=== PATIENT | male | born 1945 | race Caucasian/White ===

== ENCOUNTER → 2016-07-27 | Outpatient (CLI) | payer OTHER ==
[~2016-07-27] MED LIST: APIX1TAB3 PO; ASPI81TA28 PO; BACL10TA PO; BUPR-79 PO; CHOL100010 PO; CLR10 PO; FOLI1TAB7 PO; FURO-85 PO; LORA-741 PO; LOSA100T65 PO; MONT1TAB3 PO; MULT-506 PO; OXYC1TAB3 PO; PANT40TA PO; RANI300C PO; SIMV-151 PO; TRAM-10 PO; VNTHFA/IN INH; [UNRECOGNIZED DRUG - CODE] PO
--- NOTE | 2016-07-27 12:55 | DIAGNOSTIC IMAGING REPORT ---
PET/CT SKULL-THIGH there is no corresponding mass on the CT scan. CLINICAL HISTORY: LUNG CANCER COMPARISON STUDY: 02/24/2016 FINDINGS: The patient was injected with 14.6 mCi of F 18 labeled FDG. Following the standard induction phase, PET/CT imaging was performed from the skull base the upper thigh region. Within the neck, there is mild asymmetric increased activity in the region of the left tonsillar pillar. This this has an SUV maximum of 3.1. There is no corresponding mass on the CT scan. There is mildly increased activity within nonpathologically enlarged right jugular digastric lymph nodes. There is a persistent focus of increased FDG activity fusing to a small right lobe thyroid nodule. This is an SUV maximum of 4. Within the chest, there is no FDG avid mediastinal, hilar, or axillary adenopathy. There are no FDG avid parenchymal masses. There are postsurgical changes present within the left upper lobe. Within the abdomen and pelvis, there is physiologic urinary tract and bowel activity. There is no pathologic hepatic activity. There is no pathologic adrenal gland activity. There is no pathologic rj activity within the abdomen or pelvis. There is no pathologic skeletal activity. IMPRESSION: 1. Interval resection of the left lung nodules 2. No evidence of intrathoracic tumor recurrence. 3. Persistent FDG avid 1 cm right lobe thyroid nodule 4. Mild nonspecific increased activity in the region of the left tonsillar pillar with SUV maximum of 3.1. There is no corresponding mass in the CT scan. Electronically signed by: Rich Jackson M.D. 07/27/2016 12:54 PM Dictated Date/Time: 07/27/2016 12:39 PM
== END | disposition home or self-care (01) ==
LOC: C.PET 08:33
PROVIDERS: ATTEND Internal Medicine Hematology & Oncology
DX: C34.11 Malignant neoplasm of upper lobe, right bronchus or lung (principal); E04.1 Nontoxic single thyroid nodule

== ENCOUNTER → 2016-11-11 | Outpatient (CLI) | payer OTHER ==
[~2016-11-11] MED LIST changes: +ASPI325T45 PO; -ASPI81TA28 PO; +CHOL100010; -CHOL100010 PO; +CHOL400C10 PO; -OXYC1TAB3 PO; +RIVA1TAB4 PO; -TRAM-10 PO
[2016-11-11 13:08] VITALS: BP 122/77; PULSE 80; TEMP 36.4; O2SAT 97
--- NOTE | 2016-11-11 15:28 | Radiation Oncology Follow-Up ---
Radiation Oncology Follow-Up Date of Visit November 11, 2016. (Monet Montesinos PA-C) Reason For Visit One-month follow-up (Monet Montesinos PA-C) Radiation Completion Date 10/14/16 (Monet Montesinos PA-C) Diagnosis (1) Lung cancer Onset Date: 03/17/2016 Histology Subtype: adenocarcinoma Stage: IV Permanent Comment: Admission for bilateral pulmonary emboli Finding of a left upper lobe lesion Status post navigational bronchoscopy and left thoracoscopy with wedge resection of the lingula and biopsy of chest wall mass 03/17/2016 Adenocarcinoma of the lung Stage pTX pN0 M1a Status post 4 cycles of Alimta and carboplatin Maintenance Alimta every 3 weeks Last Edited By: oMnet Montesinos on Aug 25, 2016 11:07 (Monet Montesinos PA-C) History of Present Illness Mr. Paz is a 71-year-old gentleman who initially presented with shortness of breath and was found to have extensive pulmonary emboli in January 2016. The patient had a CT angiogram completed on 01/17/2016 which revealed: "IMPRESSION: 1. Extensive bilateral pulmonary emboli with findings suggestive of right heart strain. Subpleural right lower lobe opacities could reflect pulmonary infarcts. 2. 2 cm lobulated lingular nodule. This is nonspecific but a neoplasm is the diagnosis of exclusion. In addition, there are several indeterminate left pleural nodules which are new since prior CT. Pulmonary consultation is recommended. Short-term follow-up chest CT or PET/CT could be obtained to evaluate these indeterminate findings." The patient subsequently had a PET/CT scan on 02/24/2016: "IMPRESSION: 1. Moderate FDG uptake associated with the 2 cm lobular nodule within the lingula. Therefore, this is highly suspicious for a primary bronchogenic malignancy. 2. There is a 1 cm FDG avid nodule within the right thyroid lobe. Ultrasound guided fine-needle aspiration is recommended to evaluate for a malignancy. 3. There are 2 similar-appearing pleural-based nodules within the left lung which demonstrate abnormal FDG uptake. Therefore, these are concerning for metastatic disease. These could be from bronchogenic or thyroid malignancy. 4. Peripheral opacities demonstrate a FDG uptake within the superior segment of the right lower lobe are again noted. These favor pulmonary infarcts. Follow-up chest CT in 3 months is recommended to ensure resolution. 5. Additional subcentimeter nodules within the lungs are too small to characterize." The patient also had a CT neck completed on 02/24/2016: "IMPRESSION: 1. No cervical lymphadenopathy or cervical masses identified 2. Several subpleural nodules within the left upper lobe which are better depicted on PET/CT of February 24, 2016. 3. Several thyroid nodules, better depicted on prior thyroid ultrasound." The patient then had a repeat CT chest on 03/10/2016 which revealed: "IMPRESSION: 1. No evidence of pathologic adenopathy on this noncontrast study 2. Multiple left lung nodules, unchanged from the preceding examination 3. Stable peripheral airspace opacities within the superior segment of the right lower lobe. " The patient was then taken to the operating room on 03/17/2016 for a navigational bronchoscopy, wedge resection of the lingular lesion and biopsy of a chest wall mass by Dr. Ashby. Pathology revealed poorly differentiated adenocarcinoma involving the left lingula that measured 1.5 cm in the greatest dimension. The parenchymal resection margin was positive. There is no evidence of lymphovascular space invasion. Additionally, Dr. Ashby did biopsy chest wall mass which was consistent with metastatic carcinoma otherwise there was no evidence of disease. The patient was then subsequently seen in consultation by Dr. Rohan Renee for medical oncology. The patient was treated with 4 cycles of carboplatin and Alimta chemotherapy underneath the supervision. The patient did have a restaging PET scan on 07/27/2016 which revealed: "IMPRESSION: 1. Interval resection of the left lung nodules 2. No evidence of intrathoracic tumor recurrence. 3. Persistent FDG avid 1 cm right lobe thyroid nodule 4. Mild nonspecific increased activity in the region of the left tonsillar pillar with SUV maximum of 3.1. There is no corresponding mass in the CT scan." We are now seeing the patient to discuss the role of consolidative radiation therapy. He completed combined radiation and chemotherapy 10/14/2016. He received 5500 cGy. (Monet Montesinos PA-C) Interim History He is been doing well over the past month. He denied any difficulty with swallowing. He did not develop any areas of skin irritation on his anterior posterior thorax. He continues follow-up with Dr. Renee and has been receiving chemotherapy. Treatment is given 3 weeks on 1 week off. He stated there is plans for total 6 cycles. He is tolerating this well. He does notice fatigue approximate 2 days following treatment. He is not had any problems with nausea, vomiting, or diarrhea. He has had problems with skin irritation of the left lower extremity. While on treatment he had developed an area of superficial phlebitis and then area cellulitis. These areas resolved and improved after antibiotic therapy. He again had an area of redness more circumferential around the lower portion of the leg. His PCP gave him an antibiotic and this is improving. He is now been referred to a vascular surgeon. He is scheduled to have an ultrasound next week and to see the vascular surgeon also next week. (Monet Montesinos PA-C) Allergies Coded Allergies: Adhesives (Unverified Adverse Reaction, Unknown, Tegaderm = blistering, ) Home Medications Scheduled Apixaban (Eliquis), 5 MG PO BID Bupropion (Wellbutrin Sr), 150 MG PO HS Folic Acid (Folvite), 1 MG PO DAILY Furosemide (Lasix), 1 TAB PO DAILY Loratadine (Claritin), 10 MG PO QAM Losartan Potassium (Cozaar), 100 MG PO QAM Magnesium Aspartate-Potassium (Aspartate Mg & K), 1 CAP PO DAILY Montelukast Sodium (Singulair), 10 MG PO QPM Pantoprazole (Protonix), 40 MG PO QAM Ranitidine Hcl (Ranitidine Hcl), 1 CAP PO QPM Simvastatin (Simvastatin), 20 MG PO QPM Scheduled PRN Albuterol Hfa (Ventolin Hfa), 1 PUFF INH QID PRN for Shortness of Breath Lorazepam (Ativan), 0.5 MG PO TID PRN for Anxiety/Agitation Review of Systems Gastrointestinal: Symptoms: WNL Oral: Symptoms: No Problems Respiratory: Symptoms: SOB With Exertion, Productive Cough Sputum Character: white grayish Urinary: Symptoms: WNL Skin: Symptoms: No Problems (Monet Montesinos PA-C) Physical Exam Vital Signs Date Time Temp Pulse Resp B/P Pulse Ox O2 Delivery O2 Flow Rate FiO2 11/11/16 13:08 36.4 80 20 122/77 97 Pain: Pain Onset: intermet Pain Duration: one month Side: Left Patient Pain Scale: 0 - 10 Initial Pain Intensity: 7.0 Pain Description: Sharp Fatigue: None General Appearance: no apparent distress Eyes: normal inspection, EOMI ENT: normal ENT inspection, hearing grossly normal Respiratory/Chest: lungs clear, no respiratory distress, no accessory muscle use Cardiovascular: regular rate, rhythm, no gallop, no murmur Abdomen: non tender Extremities: + pertinent finding (stasis dermatitis of the left lower extremity resolving erythema) Neurologic/Psychiatric: no motor/sensory deficits, alert, normal mood/affect Skin: warm/dry Lymphatic: no adenopathy (Monet Montesinos PA-C) Laboratory Studies Test 09/23/16 12:46 09/28/16 11:33 10/05/16 14:15 10/14/16 12:41 Platelet Estimate DECREASED Est Creatinine Clear Calc Drug Dose 58.1 ml/min 72.5 ml/min Chemistry Specimen Hemolysis Immature Granulocyte % (Auto) 0.2 % White Blood Count 4.34 K/uL (4.8-10.8) 1.37 K/uL (4.8-10.8) Red Blood Count 3.39 M/uL (4.7-6.1) 3.28 M/uL (4.7-6.1) Hemoglobin 11.2 g/dL (14.0-18.0) 10.5 g/dL (14.0-18.0) Hematocrit 33.3 % (42-52) 31.3 % (42-52) Mean Corpuscular Volume 98.2 fL (80-100) 95.4 fL (80-100) Mean Corpuscular Hemoglobin 33.0 pg (25-34) 32.0 pg (25-34) Mean Corpuscular Hemoglobin Concent 33.6 g/dl (32-36) 33.5 g/dl (32-36) Platelet Count 149 K/uL (130-400) 69 K/uL (130-400) Mean Platelet Volume 10.4 fL (7.4-10.4) 9.8 fL (7.4-10.4) Neutrophils (%) (Auto) 60.8 % Lymphocytes (%) (Auto) 26.5 % Monocytes (%) (Auto) 10.6 % Eosinophils (%) (Auto) 1.4 % Basophils (%) (Auto) 0.5 % Neutrophils # (Auto) 2.64 K/uL (1.4-6.5) Lymphocytes # (Auto) 1.15 K/uL (1.2-3.4) Monocytes # (Auto) 0.46 K/uL (0.11-0.59) Eosinophils # (Auto) 0.06 K/uL (0-0.5) Basophils # (Auto) 0.02 K/uL (0-0.2) Immature Granulocyte # (Auto) 0.01 K/uL (0.00-0.02) Lactate Dehydrogenase 227 U/L (87-241) RDW Standard Deviation 61.0 fL (36.4-46.3) RDW Coefficient of Variation 17.6 % (11.5-14.5) Neutrophils % (Manual) 30.4 % Lymphocytes % (Manual) 47.0 % Monocytes % (Manual) 16.5 % Eosinophils % (Manual) 6.1 % Neutrophils # (Manual) 0.42 K/uL (1.4-6.5) Total Absolute Neutrophils 0.42 K/uL (1.4-6.5) Lymphocytes # (Manual) 0.64 K/uL (1.2-3.4) Total Absolute Lymphocytes 0.64 K/uL (1.2-3.4) Monocytes # (Manual) 0.23 K/uL (0.11-0.59) Eosinophils # (Manual) 0.08 K/uL (0-0.5) Red Blood Cell Morphology Unremarkable Sodium Level 141 mmol/L (136-145) Potassium Level 4.1 mmol/L (3.5-5.1) Chloride Level 105 mmol/L (98-107) Carbon Dioxide Level 32 mmol/L (21-32) Anion Gap 4.0 mmol/L (3-11) Blood Urea Nitrogen 18 mg/dl (7-18) Creatinine 1.20 mg/dl (0.60-1.40) Estimated GFR () 71.1 Estimated GFR (Non- 61.3 BUN/Creatinine Ratio 14.7 (10-20) Random Glucose 107 mg/dl (70-99) Calcium Level 9.4 mg/dl (8.5-10.1) Total Bilirubin 0.5 mg/dl (0.2-1) Aspartate Amino Transferase (AST) 39 U/L (15-37) Alanine Aminotransferase (ALT) 58 U/L (12-78) Alkaline Phosphatase 113 U/L (45-117) Total Protein 7.7 gm/dl (6.4-8.2) Albumin 3.5 gm/dl (3.4-5.0) Globulin 4.2 gm/dl (2.5-4.0) Albumin/Globulin Ratio 0.8 (0.9-2) Test 10/26/16 14:08 White Blood Count 4.49 K/uL (4.8-10.8) Red Blood Count 3.33 M/uL (4.7-6.1) Hemoglobin 10.7 g/dL (14.0-18.0) Hematocrit 32.9 % (42-52) Mean Corpuscular Volume 98.8 fL (80-100) Mean Corpuscular Hemoglobin 32.1 pg (25-34) Mean Corpuscular Hemoglobin Concent 32.5 g/dl (32-36) Platelet Count 150 K/uL (130-400) Mean Platelet Volume 10.3 fL (7.4-10.4) Neutrophils (%) (Auto) 61.5 % Lymphocytes (%) (Auto) 23.2 % Monocytes (%) (Auto) 10.7 % Eosinophils (%) (Auto) 4.0 % Basophils (%) (Auto) 0.4 % Neutrophils # (Auto) 2.76 K/uL (1.4-6.5) Lymphocytes # (Auto) 1.04 K/uL (1.2-3.4) Monocytes # (Auto) 0.48 K/uL (0.11-0.59) Eosinophils # (Auto) 0.18 K/uL (0-0.5) Basophils # (Auto) 0.02 K/uL (0-0.2) RDW Standard Deviation 69.7 fL (36.4-46.3) RDW Coefficient of Variation 19.3 % (11.5-14.5) Immature Granulocyte % (Auto) 0.2 % Immature Granulocyte # (Auto) 0.01 K/uL (0.00-0.02) Sodium Level 141 mmol/L (136-145) Potassium Level 4.0 mmol/L (3.5-5.1) Chloride Level 106 mmol/L (98-107) Carbon Dioxide Level 29 mmol/L (21-32) Anion Gap 6.0 mmol/L (3-11) Blood Urea Nitrogen 18 mg/dl (7-18) Creatinine 1.20 mg/dl (0.60-1.40) Estimated GFR () 71.1 Estimated GFR (Non- 61.3 BUN/Creatinine Ratio 15.0 (10-20) Random Glucose 104 mg/dl (70-99) Calcium Level 9.2 mg/dl (8.5-10.1) Total Bilirubin 0.4 mg/dl (0.2-1) Aspartate Amino Transferase (AST) 38 U/L (15-37) Alanine Aminotransferase (ALT) 55 U/L (12-78) Alkaline Phosphatase 124 U/L (45-117) Lactate Dehydrogenase 280 U/L (87-241) Total Protein 7.5 gm/dl (6.4-8.2) Albumin 3.6 gm/dl (3.4-5.0) Globulin 3.9 gm/dl (2.5-4.0) Albumin/Globulin Ratio 0.9 (0.9-2) (Monet Montesinos PA-C) Additional Studies Patient: ASHLEY PAZ JR Address1: [address] [place] [address] Rec: [id number] [id number] Zip: [place] [address] Date: 1945 Sex: M Room/Bed: Ref Phy: Patrick Ratliff M.D. SC: WU Att Phy: Celsa Rhoades .DIANNE Report #: [id number] Alyce Phy: Patrick Ratliff M.D. Test: CX Admit Phy: Video Effects Editor: EMANI Interpreting Phy: Rich Jackson M.D. Diagnosis: NON SMALL CELL LUNG CANCER Ordering Phy: Celsa Rhoades Service Date: 11/05/16 Admit Date: 11/05/16 MNE: [id number] CONF: DICTATED BY: Rich Jackson M.D.]] CC: Patrick Ratliff M.D. Whittaker, Lynn ., CRNP Endcc: [~ rep ct add3]] CT OF THE CHEST WITH IV CONTRAST CLINICAL HISTORY: Non-small cell lung carcinoma COMPARISON STUDY: 03/19/2016 TECHNIQUE: Following the IV administration of 94 mL of Optiray-320, CT of the thorax was performed from the thoracic inlet to the lung bases. Images are reviewed in the axial, sagittal, and coronal planes. IV contrast was administered without complication. CT DOSE: 1921.83 mGy.cm FINDINGS: Thyroid: There is a 1 cm right lobe thyroid nodule Thoracic aorta: The thoracic aorta is normal in course and caliber, noting standard 3-vessel arch anatomy. No aneurysm or dissection is seen. Pulmonary vasculature: The pulmonary trunk is normal in caliber. There are no central filling defects identified to suggest pulmonary embolus. Note that this examination was not protocoled for the evaluation of pulmonary emboli. HEART: The heart is normal in size and configuration, without pericardial effusion. Lungs and pleural spaces: No pleural effusions are visualized. Postsurgical changes are present within the lingula. There are areas of presumed linear scarring/atelectasis within the lingula. There is underlying emphysema. There is no focal pulmonary consolidation. There are stable right lower lobe opacities, also likely representing atelectasis/scar. There is a stable 5 mm left lower lobe pulmonary nodule. Mediastinum: There is a precarinal lymph node the upper limits of normal in size. There is no pathologic adenopathy by size criteria Sakina: There is no pathologic hilar adenopathy Axilla: Clear. Upper abdomen: Partially visualized upper abdominal viscera is within normal limits. Skeletal structures: There are no lytic or blastic osseous lesions. IMPRESSION: 1. Postsurgical changes present within the left upper lobe. 2. Stable areas of presumed atelectasis/scarring within left upper lobe 3. Stable airspace opacities within the superior segment of the right lower lobe peripherally, likely representing scar/atelectasis 4. Stable 5 mm left lower lobe pulmonary nodule 6. No evidence of pathologic adenopathy Electronically signed by: Rich Jackson M.D. 11/05/2016 12:37 PM Dictated Date/Time: 11/05/2016 12:29 PM Patient: ASHLEY PAZ JR Address1: [address] [facility] Rec: [id number] Address2: Acct ID: [id number] [facility] Zip: [place] [address] Date: 1945 Sex: M Room/Bed: Ref Phy: Patrick Ratliff M.D. SC: WU Att Phy: Celsa Rhoades CRNP Report #: [id number] Alyce Phy: Patrick Ratliff M.D. Test: APW Admit Phy: Video Effects Editor: EMANI Interpreting Phy: Casper Abbott M.D. Diagnosis: NON SMALL CELL LUNG CANCER Ordering Phy: Celsa Rhoades Service Date: 11/05/16 Admit Date: 11/05/16 MNE: [id number] CONF: DICTATED BY: Casper Abbott M.D.]] CC: Patrick Ratliff M.D. Whittaker, Lynn ., CRNP Endcc: [~ rep ct add3]] CT SCAN OF THE ABDOMEN AND PELVIS WITH IV CONTRAST CLINICAL HISTORY: Non-small cell lung cancer. COMPARISON STUDY: PET/CT dated 07/27/2016. Chest CT dated 10/11/2013. TECHNIQUE: Following the IV administration of 94 cc of Optiray 320, CT scan of the abdomen and pelvis is performed from the lung bases to the proximal femora. Images are reviewed in the axial, sagittal, and coronal planes. IV contrast was administered without complication. Automated dose control exposure was utilized. FINDINGS: Lung bases: The heart is top normal in size and without pericardial effusion. The coronary arteries are densely calcified. Postoperative change and scarring is seen in the lingula. Emphysema is suspected. No airspace consolidation or pleural effusion is identified. There is a small hiatal hernia. Liver: The contrast-enhanced liver is normal in size, contour, and attenuation. There is no intrahepatic biliary ductal dilatation. The hepatic veins and portal veins are patent. A 1.5 cm low-attenuation lesion is again seen in the left lobe of liver on image #70. Although incompletely characterized, this demonstrates foci of peripheral nodular enhancement and this strongly suggests a benign hemangioma. This is been present dating back to 2013 and is of doubtful significance. Gallbladder: Unremarkable. Spleen: Normal in size and attenuation. Pancreas: Unremarkable. Adrenal glands: Small bilateral adrenal adenomas measuring up to 1.7 cm are unchanged dating back to 2013 . Kidneys: The contrast enhanced kidneys demonstrate mild cortical atrophy and are without hydronephrosis. There is an 8 mm exophytic enhancing nodule arising from the posterior interpolar left kidney seen on image #229. The kidneys enhance symmetrically. Abdominal vasculature: The abdominal aorta is normal in course and caliber noting moderate to advanced atherosclerotic calcification. Bowel: The small bowel and colon are normal in course and caliber. The appendix is well-visualized and normal. Peritoneum: There is no intraperitoneal free air or abdominal ascites. Lymphadenopathy: None. Pelvic viscera: The bladder, prostate, and seminal vesicles are normal as imaged. Skeletal structures: The skeletal structures are osteopenic. Mild lumbosacral spondylosis is observed. No lytic or blastic lesions are seen. There are healed left-sided rib fractures. IMPRESSION: 1. There is no evidence of metastatic disease in the abdomen or pelvis. 2. There is an 8 mm exophytic enhancing nodule arising from the posterior interpolar left kidney. Although pathologically indeterminant this is concerning for a small renal cell carcinoma. 3. Hiatal hernia. 4. Additional findings as above. Electronically signed by: Casper Abbott M.D. 11/05/2016 12:40 PM (Monet Montesinos PA-C) Assessment & Plan Plan: Continue follow-up with Dr. Renee. He is continuing on his cycles of chemotherapy. He has been referred to a vascular surgeon. He'll be seeing next week in regards to the issues that he has been having with his left lower extremity. Today he was seen and examined by Dr. Pacheco. We asked him to return to our office in 6 months. He may call if he has any questions or concerns in the interim. We reviewed the above CT findings of the chest, abdomen, and pelvis. These have been reviewed by Dr. Renee with the patient also. The small lesion of the kidney had been seen also on a previous study, per the patient. Recheck scanning and laboratory studies per Dr. Renee. (Monet Montesinos PA-C) I agree with note created by Monet Montesinos PA-C. I reviewed the patient's chart and information with her. I have examined and evaluated the patient. I reviewed relevant clinical information and answered the patient's and/or family' s questions. (Veeral. Pacheco MD) Total Time In Follow-Up I spent 20 minutes speaking to the patient and performing examination. I spent 15 minutes reviewing information in completing this note. (Monet Montesinos PA-C) I spent 15 minutes examining and counseling the patient. (Veeral. Pacheco MD) Copy To Rohan Renee D.O.; Patrick Ratliff M.D. Problem Qualifiers (1) Lung cancer: Laterality: left Lung location: upper lobe of lung Qualified Codes: C34.12 - Malignant neoplasm of upper lobe, left bronchus or lung
== END | disposition home or self-care (01) ==
LOC: C.ONC 12:59
PROVIDERS: ATTEND Physician Assistant Medical
DX: Z08 Encounter for follow-up examination after completed treatment for malignant neoplasm (principal); Z92.3 Personal history of irradiation; Z85.118 Personal history of other malignant neoplasm of bronchus and lung

== ENCOUNTER → 2016-12-18 | Outpatient (CLI) | payer OTHER ==
[~2016-12-18] MED LIST changes: -BACL10TA PO
--- NOTE | 2016-12-18 08:59 | DIAGNOSTIC IMAGING REPORT ---
LEFT KNEE 1 OR 2 VIEWS ROUTINE CLINICAL HISTORY: LEFT KNEE PAIN COMPARISON: None. DISCUSSION: There are moderate osteoarthritic changes with moderate lateral joint compartment narrowing. There are small dorsal patellar spurs. 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 This has been previously described. IMPRESSION: 1. Moderate osteoarthritic change 2. No acute fractures 3. Popliteal artery aneurysm Electronically signed by: Rich Jackson M.D. 12/18/2016 8:58 AM Dictated Date/Time: 12/18/2016 8:57 AM
[2016-12-18 10:46] LABS: HEMATOCRIT 29.6 % (42-52); MEAN CELL VOLUME 102.1 fL (80-100); MEAN CORPUSCULAR HEMOGLOBIN 31.4 pg (25-34); MEAN CORPUSCULAR HGB CONC 30.7 g/dl (32-36); MEAN PLATELET VOLUME 11.1 fL (7.4-10.4); PLATELET COUNT 113 K/uL (130-400); WHITE BLOOD COUNT 3.29 K/uL (4.8-10.8)
[2016-12-18 10:58] LABS: ALT/SGPT 96 U/L (12-78); BLOOD UREA NITROGEN 23 mg/dl (7-18); BUN/CREATININE RATIO 17.6 (10-20); CARBON DIOXIDE 24 mmol/L (21-32); CHLORIDE 106 mmol/L (98-107); CHOLESTEROL 133 mg/dl (0-200); GLUCOSE 99 mg/dl (70-99); POTASSIUM 3.6 mmol/L (3.5-5.1); SODIUM 140 mmol/L (136-145)
[2016-12-18 11:09] LABS: ALB/GLOB RATIO 0.7 (0.9-2); ALKALINE PHOSPHATASE 113 U/L (45-117); AST/SGOT 65 U/L (15-37); CHOLESTEROL/HDL RATIO 3.9; HDL CHOLESTEROL 34 mg/dl; LDL CHOLESTEROL CALCULATED 79 mg/dl; TRIGLYCERIDES 102 mg/dl (0-150); VERY LOW DENSITY LIPOPROT CALC 20 mg/dl
[2016-12-18 11:28] LABS: URINE APPEARANCE CLEAR (CLEAR); URINE BILIRUBIN NEG (NEG); URINE COLOR YELLOW; URINE NITRITE NEG (NEG); URINE PH 5.5 (4.5-7.5); URINE SPECIFIC GRAVITY 1.019 (1.000-1.030); UROBILINOGEN NEG (NEG)
[2016-12-18 11:30] LABS: MANUAL MICROSCOPIC REQUIRED? NO; REVIEW REQ? NO
[2016-12-18 12:12] LABS: CALCIUM 8.8 mg/dl (8.5-10.1)
== END | disposition home or self-care (01) ==
LOC: C.RADBC 08:29
DX: I27.82 Chronic pulmonary embolism (principal); E78.00 Pure hypercholesterolemia, unspecified; D44.9 Neoplasm of uncertain behavior of unspecified endocrine gland; M15.0 Primary generalized (osteo)arthritis; R42 Dizziness and giddiness; C34.10 Malignant neoplasm of upper lobe, unspecified bronchus or lung; M25.562 Pain in left knee

== ENCOUNTER → 2017-01-26 | Outpatient (CLI) | payer OTHER ==
[~2017-01-26] MED LIST changes: -ASPI325T45 PO; -CHOL100010; -CHOL400C10 PO; -MULT-506 PO; -RIVA1TAB4 PO
--- NOTE | 2017-01-26 15:15 | DIAGNOSTIC IMAGING REPORT ---
(CHEST) THORAX WITH HISTORY: 71 years-old Male LUNG CA follow-up study. COMPARISON: Chest CT 11/05/2016, 03/19/2016, 10/11/2013. TECHNIQUE: Multiple axial CT images of the chest were obtained following the intravenous administration of 92 mL Optiray 320. A dose lowering technique was used consistent with the principals of PRISCILLA. FINDINGS: There is a focal 4 mm calcification of the mid right thyroid lobe. No pathologic adenopathy pneumothorax is identified. Left pectoral Ruiohz-l-Ghsu catheter is seen with distal tip terminating near the superior cavoatrial junction. The heart is normal in size. Coronary arterial calcifications are noted. There is no evidence of aortic dissection or aneurysm. There is moderate atherosclerotic plaquing of the aorta. Pulmonary arterial tree appears unremarkable. There is no pneumothorax or pleural effusion. Mild biapical centrilobular and to lesser extent paraseptal emphysematous changes are present. There is an unchanged 5 mm noncalcified pulmonary nodule the left lower lobe which is stable dating back to at least 10/11/2013 compatible with benign etiology. 4 mm noncalcified pulmonary nodule within the lateral segment right middle lobe is also unchanged from 10/11/2013 compatible with benign etiology. There is mild bibasilar bronchiectasis with areas of pleural parenchymal scarring redemonstrated within the lingula and superior segment of the right lower lobe, stable from comparison study dated 11/05/2016. There is new irregular consolidative opacity within the left upper lobe with central air bronchograms measuring up to 2.1 x 4.8 cm which appears to be confluence abutting the pleural surface suggesting progressive pleural parenchymal scarring. Attention to this area on follow-up is recommended. Mild nodular and tree-in-bud opacities within the basal left lower lobe suggest areas of pneumonitis and bronchiolitis as seen on axial images 200-230. The imaged upper abdominal structures are within normal limits. There are no suspicious lytic or blastic bony lesions identified. Multilevel endplate spurring is seen throughout the spine. Remote fracture of the anterolateral left third rib is again seen. Subacute nondisplaced fractures of the lateral right sixth and seventh ribs are new from comparison study dated 11/05/2016. IMPRESSION: 1. Postsurgical changes of the left upper lobe and lingula are again seen with multifocal areas of pleural parenchymal scarring in the left upper lobe and superior segment right lower lobe. 2. New irregular consolidative type opacity with central air bronchograms abutting the pleural surface within the left upper lobe suggests progressive parenchymal scarring. Attention on follow-up is recommended. 3. Mild pneumonitis and bronchiolitis of the basal left lower lobe. 4. Unchanged noncalcified pulmonary nodules measuring up to 4 mm of the right middle lobe and left lower lobe are stable dating back to at least 2013 compatible with benign etiology. 5. Subacute nondisplaced fractures of the lateral right sixth and seventh ribs are new from comparison study dated 11/05/2016. The above report was generated using voice recognition software. It may contain grammatical, syntax or spelling errors. Electronically signed by: Mane Ramos M.D. 01/26/2017 3:14 PM Dictated Date/Time: 01/26/2017 3:02 PM
--- NOTE | 2017-01-26 16:08 | DIAGNOSTIC IMAGING REPORT ---
CT OF THE ABDOMEN AND PELVIS WITH CONTRAST CLINICAL HISTORY: Non-small cell lung cancer. COMPARISON STUDY: CT of the abdomen and pelvis November 05, 2016 pain and PET/CT July 27, 2016. TECHNIQUE: Following IV administration of 92 mL of Optiray-320, axial images of the abdomen and pelvis were obtained from the lung bases to the proximal femurs. Images were reviewed in the axial, sagittal, and coronal planes. IV contrast was administered without complication. A dose lowering technique was utilized adhering to the principles of ALARA. Oral contrast was administered. CT DOSE: 2637.98 mGy.cm FINDINGS: The chest will be reported separately. A 1 cm hypodense lateral segment hepatic lesion reflects a cyst. This is unchanged. A 2.2 cm left adrenal nodule is unchanged and CT of October 11, 2013. Therefore, this is benign. The spleen, right adrenal gland, right kidney and pancreas are unremarkable. An 8 mm suspected exophytic lesion arising from the posterior aspect of the midpole of the left kidney is unchanged and CT of November 05, 2016. This remains indeterminate. No enlarged abdominal or pelvic lymph nodes are present. There is no evidence for a bowel obstruction. Caliber and wall thickness of small and large bowel are normal. There is moderate atherosclerotic plaque of the abdominal aorta. No suspicious osseous lesions are identified within visualized skeletal structures. IMPRESSION: 1. No evidence of metastatic disease within the abdomen or pelvis. 2. No change in the 8 mm left renal lesion since CT of November 05, 2016. This remains indeterminate and could reflect a small renal cell carcinoma or hyperdense cyst. This can be assessed on subsequent exams. Electronically signed by: Dorian Paris M.D. 01/26/2017 4:07 PM Dictated Date/Time: 01/26/2017 3:03 PM
== END | disposition home or self-care (01) ==
LOC: C.CTS 12:33
PROVIDERS: ATTEND Internal Medicine Hematology & Oncology
DX: C34.11 Malignant neoplasm of upper lobe, right bronchus or lung (principal); N28.9 Disorder of kidney and ureter, unspecified; R91.8 Other nonspecific abnormal finding of lung field; J18.9 Pneumonia, unspecified organism; J21.9 Acute bronchiolitis, unspecified; R05 Cough; D44.0 Neoplasm of uncertain behavior of thyroid gland; I10 Essential (primary) hypertension; I27.82 Chronic pulmonary embolism; R42 Dizziness and giddiness; R53.83 Other fatigue

== ENCOUNTER → 2017-01-26 | Outpatient (CLI) | payer OTHER ==
--- NOTE | 2017-01-26 11:45 | DIAGNOSTIC IMAGING REPORT ---
CHEST 2 VIEWS ROUTINE CLINICAL HISTORY: Shortness of breath. Non-small cell lung cancer. COMPARISON STUDY: Chest CT November 05, 2016. FINDINGS: A left Bwcris-d-Yque is in place. There is no pneumothorax or pleural effusion. There is no evidence of pulmonary edema. Mild cardiomegaly is unchanged. Linear left lung opacities suggest atelectasis or scarring. There is mild right lower lung reticulonodular interstitial thickening. IMPRESSION: 1. No consolidation. 2. Left lung linear opacities which suggest scarring or atelectasis. Stable postoperative findings within the left hemithorax. 3. No change in appearance of the chest. Electronically signed by: Dorian Paris M.D. 01/26/2017 11:44 AM Dictated Date/Time: 01/26/2017 11:41 AM
[2017-01-26 13:32] LABS: MEAN CELL VOLUME 101.7 fL (80-100); MEAN CORPUSCULAR HEMOGLOBIN 31.9 pg (25-34); MEAN CORPUSCULAR HGB CONC 31.4 g/dl (32-36); MEAN PLATELET VOLUME 10.8 fL (7.4-10.4); PLATELET COUNT 183 K/uL (130-400); RED BLOOD COUNT 3.54 M/uL (4.7-6.1); WHITE BLOOD COUNT 6.89 K/uL (4.8-10.8)
[2017-01-26 13:44] LABS: PROTHROMBIN TIME (PATIENT) 10.4 SECONDS (9.0-12.0)
[2017-01-26 13:45] LABS: ALT/SGPT 38 U/L (12-78); BLOOD UREA NITROGEN 24 mg/dl (7-18); BUN/CREATININE RATIO 18.2 (10-20); CALCIUM 9.2 mg/dl (8.5-10.1); CARBON DIOXIDE 25 mmol/L (21-32); CHLORIDE 106 mmol/L (98-107); GLUCOSE 99 mg/dl (70-99); SODIUM 139 mmol/L (136-145)
[2017-01-26 13:51] LABS: ALB/GLOB RATIO 0.8 (0.9-2); ALKALINE PHOSPHATASE 125 U/L (45-117); AST/SGOT 37 U/L (15-37)
[2017-01-26 14:25] LABS: URINE APPEARANCE CLEAR (CLEAR); URINE BILIRUBIN NEG (NEG); URINE COLOR YELLOW; URINE NITRITE NEG (NEG); URINE SPECIFIC GRAVITY 1.022 (1.000-1.030); UROBILINOGEN NEG (NEG)
[2017-01-26 14:26] LABS: MANUAL MICROSCOPIC REQUIRED? NO; REVIEW REQ? NO
== END | disposition home or self-care (01) ==
LOC: C.RADBC 10:34
PROVIDERS: ATTEND Physician Assistant
DX: R05 Cough (principal); D44.0 Neoplasm of uncertain behavior of thyroid gland; I10 Essential (primary) hypertension; I27.82 Chronic pulmonary embolism; R42 Dizziness and giddiness; R53.83 Other fatigue

== ENCOUNTER → 2017-03-05 | Outpatient (CLI) | payer OTHER ==
--- NOTE | 2017-03-05 12:21 | DIAGNOSTIC IMAGING REPORT ---
CHEST 2 VIEWS ROUTINE CLINICAL HISTORY: LUNG CANCER WITH CHRONIC COUGH COMPARISON STUDY: 01/26/2017 FINDINGS: The cardiac and mediastinal contours remain stable. There is stable aortic tortuosity/ectasia. Surgical clips project over the left hilar region. There is a left-sided A-Port catheter unchanged in position. There are suture lines present the left apex. There is underlying pulmonary emphysema. There is chronic indistinctness left heart border. There is no acute parenchymal consolidation. There is stable left upper lobe linear scar/atelectasis. There is no failure. There are no pleural effusions.[ IMPRESSION: Postsurgical change. No acute findings. Electronically signed by: Rich Jackson M.D. 03/05/2017 12:19 PM Dictated Date/Time: 03/05/2017 12:18 PM
== END | disposition home or self-care (01) ==
LOC: C.RADBC 10:55
PROVIDERS: ATTEND Internal Medicine Hematology & Oncology
DX: C34.11 Malignant neoplasm of upper lobe, right bronchus or lung (principal)

== ENCOUNTER → 2017-05-18 | Outpatient (CLI) | payer OTHER ==
[~2017-05-18] MED LIST changes: +ASPI325T45 PO; +CHOL100010; +CHOL400C10 PO; +MULT-506 PO; +RIVA1TAB4 PO
[2017-05-18 13:18] VITALS: BP 132/80; PULSE 75; TEMP 36.6; O2SAT 96
--- NOTE | 2017-05-18 16:02 | Radiation Oncology Follow-Up ---
Radiation Oncology Follow-Up Date of Visit May 18, 2017. Reason For Visit 6 month follow-up Radiation Completion Date finished 10-14-2016 Diagnosis (1) Lung cancer Onset Date: 03/17/2016 Histology Subtype: adenocarcinoma Stage: IV Permanent Comment: Admission for bilateral pulmonary emboli Finding of a left upper lobe lesion Status post navigational bronchoscopy and left thoracoscopy with wedge resection of the lingula and biopsy of chest wall mass 03/17/2016 Adenocarcinoma of the lung Stage pTX pN0 M1a Status post 4 cycles of Alimta and carboplatin Maintenance Alimta every 3 weeks Status post completion of combined radiation and chemotherapy 10/14/2016. He received 5500 cGy Completing chemotherapy 06/26/2016 Last Edited By: Monet Montesinos on May 18, 2017 15:51 History of Present Illness Mr. Paz is a 71-year-old gentleman who initially presented with shortness of breath and was found to have extensive pulmonary emboli in January 2016. The patient had a CT angiogram completed on 01/17/2016 which revealed: "IMPRESSION: 1. Extensive bilateral pulmonary emboli with findings suggestive of right heart strain. Subpleural right lower lobe opacities could reflect pulmonary infarcts. 2. 2 cm lobulated lingular nodule. This is nonspecific but a neoplasm is the diagnosis of exclusion. In addition, there are several indeterminate left pleural nodules which are new since prior CT. Pulmonary consultation is recommended. Short-term follow-up chest CT or PET/CT could be obtained to evaluate these indeterminate findings." The patient subsequently had a PET/CT scan on 02/24/2016: "IMPRESSION: 1. Moderate FDG uptake associated with the 2 cm lobular nodule within the lingula. Therefore, this is highly suspicious for a primary bronchogenic malignancy. 2. There is a 1 cm FDG avid nodule within the right thyroid lobe. Ultrasound guided fine-needle aspiration is recommended to evaluate for a malignancy. 3. There are 2 similar-appearing pleural-based nodules within the left lung which demonstrate abnormal FDG uptake. Therefore, these are concerning for metastatic disease. These could be from bronchogenic or thyroid malignancy. 4. Peripheral opacities demonstrate a FDG uptake within the superior segment of the right lower lobe are again noted. These favor pulmonary infarcts. Follow-up chest CT in 3 months is recommended to ensure resolution. 5. Additional subcentimeter nodules within the lungs are too small to characterize." The patient also had a CT neck completed on 02/24/2016: "IMPRESSION: 1. No cervical lymphadenopathy or cervical masses identified 2. Several subpleural nodules within the left upper lobe which are better depicted on PET/CT of February 24, 2016. 3. Several thyroid nodules, better depicted on prior thyroid ultrasound." The patient then had a repeat CT chest on 03/10/2016 which revealed: "IMPRESSION: 1. No evidence of pathologic adenopathy on this noncontrast study 2. Multiple left lung nodules, unchanged from the preceding examination 3. Stable peripheral airspace opacities within the superior segment of the right lower lobe. " The patient was then taken to the operating room on 03/17/2016 for a navigational bronchoscopy, wedge resection of the lingular lesion and biopsy of a chest wall mass by Dr. Ashby. Pathology revealed poorly differentiated adenocarcinoma involving the left lingula that measured 1.5 cm in the greatest dimension. The parenchymal resection margin was positive. There is no evidence of lymphovascular space invasion. Additionally, Dr. Ashby did biopsy chest wall mass which was consistent with metastatic carcinoma otherwise there was no evidence of disease. The patient was then subsequently seen in consultation by Dr. Rohan Renee for medical oncology. The patient was treated with 4 cycles of carboplatin and Alimta chemotherapy underneath the supervision. The patient did have a restaging PET scan on 07/27/2016 which revealed: "IMPRESSION: 1. Interval resection of the left lung nodules 2. No evidence of intrathoracic tumor recurrence. 3. Persistent FDG avid 1 cm right lobe thyroid nodule 4. Mild nonspecific increased activity in the region of the left tonsillar pillar with SUV maximum of 3.1. There is no corresponding mass in the CT scan." We are now seeing the patient to discuss the role of consolidative radiation therapy. He completed combined radiation and chemotherapy 10/14/2016. He received 5500 cGy. Interim History He feels he is stable from a respiratory status over the past 6 months. He has a chronic cough. He did see his PCP and will be having a CAT scan of his sinuses today. He denies any difficulty with swallowing. His appetite is good. He has gained approximately 10 pounds since completion of treatment. His last chemotherapy was 06/26/2016 and that was carboplatin and Pemetrexed. He had a follow-up CAT scan in January. He also had a chest x-ray in March. Allergies Coded Allergies: Adhesives (Unverified Adverse Reaction, Unknown, Tegaderm = blistering, ) Home Medications Scheduled Aspirin (Aspirin), 325 MG PO HS Bupropion (Wellbutrin Sr), 150 MG PO HS Cholecalciferol (Vitamin D 400), 1 TAB PO DAILY Folic Acid (Folvite), 1 MG PO DAILY Loratadine (Claritin), 10 MG PO QAM Losartan Potassium (Cozaar), 100 MG PO QAM Magnesium Aspartate-Potassium (Aspartate Mg & K), 1 CAP PO DAILY Montelukast Sodium (Singulair), 10 MG PO QPM Multivitamin (Multivitamin), 1 TAB PO DAILY Pantoprazole (Protonix), 40 MG PO QAM Ranitidine Hcl (Ranitidine Hcl), 1 CAP PO QPM Rivaroxaban (Xarelto), 1 TAB PO DAILY Simvastatin (Simvastatin), 20 MG PO QPM Scheduled PRN Albuterol Hfa (Ventolin Hfa), 1 PUFF INH QID PRN for Shortness of Breath Lorazepam (Ativan), 0.5 MG PO TID PRN for Anxiety/Agitation Miscellaneous Medications Cholecalciferol (Vitamin D) Review of Systems Gastrointestinal: Symptoms: WNL Oral: Symptoms: No Problems Respiratory: Symptoms: Moist Cough, SOB With Exertion, Productive Cough Sputum Character: "goodson in color " Urinary: Symptoms: Nocturia Comments: nocturia times 1-3 Skin: Symptoms: No Problems Physical Exam Vital Signs Date Time Temp Pulse Resp B/P (MAP) Pulse Ox O2 Delivery O2 Flow Rate FiO2 05/18/17 13:18 36.6 75 20 132/80 96 Fatigue: None General Appearance: no apparent distress Eyes: normal inspection, EOMI ENT: normal ENT inspection, hearing grossly normal Neck: no adenopathy, thyroid normal Respiratory/Chest: no respiratory distress, no accessory muscle use, + wheezing (mild anterior lung javier, clear posterior bilaterally) Cardiovascular: regular rate, rhythm, no gallop, no murmur Abdomen: normal bowel sounds, non tender Extremities: no pedal edema Neurologic/Psychiatric: no motor/sensory deficits, alert, normal mood/affect Skin: warm/dry Pain Management Pain Duration: one month Side: Bilateral Pain Location: Leg Patient Preferred Pain Scale: 0 - 10 Pain Rating (0-10): 0 Pain Description: Sharp Additional Studies Patient: ASHLEY PAZ JR Address1: [address] [facility] Rec: [id number] Address2: Acct ID: [id number] [facility] Zip: [place] [address] Date: 1945 Sex: M Room/Bed: Ref Phy: Patrick Ratliff M.D. SC: C.CTS Att Phy: Rohan Renee D.O. Report #: [id number] Alyce Phy: Patrick Ratliff M.D. Test: APIV Admit Phy: Assembler Seat: DAGO Interpreting Phy: Dorian Paris MD Diagnosis: LUNG CANCER Ordering Phy: Rohan Renee D.O. Service Date: 01/26/17 Admit Date: 01/26/17 MNE: [id number] CONF: DICTATED BY: Dorian Paris MD]] CC: Rohan Renee D.O. Greenberg, Michael R., M.D. Endcc: [~ rep ct add3]] CT OF THE ABDOMEN AND PELVIS WITH CONTRAST CLINICAL HISTORY: Non-small cell lung cancer. COMPARISON STUDY: CT of the abdomen and pelvis November 05, 2016 pain and PET/CT July 27, 2016. TECHNIQUE: Following IV administration of 92 mL of Optiray-320, axial images of the abdomen and pelvis were obtained from the lung bases to the proximal femurs. Images were reviewed in the axial, sagittal, and coronal planes. IV contrast was administered without complication. A dose lowering technique was utilized adhering to the principles of ALARA. Oral contrast was administered. CT DOSE: 2637.98 mGy.cm FINDINGS: The chest will be reported separately. A 1 cm hypodense lateral segment hepatic lesion reflects a cyst. This is unchanged. A 2.2 cm left adrenal nodule is unchanged and CT of October 11, 2013. Therefore, this is benign. The spleen, right adrenal gland, right kidney and pancreas are unremarkable. An 8 mm suspected exophytic lesion arising from the posterior aspect of the midpole of the left kidney is unchanged and CT of November 05, 2016. This remains indeterminate. No enlarged abdominal or pelvic lymph nodes are present. There is no evidence for a bowel obstruction. Caliber and wall thickness of small and large bowel are normal. There is moderate atherosclerotic plaque of the abdominal aorta. No suspicious osseous lesions are identified within visualized skeletal structures. IMPRESSION: 1. No evidence of metastatic disease within the abdomen or pelvis. 2. No change in the 8 mm left renal lesion since CT of November 05, 2016. This remains indeterminate and could reflect a small renal cell carcinoma or hyperdense cyst. This can be assessed on subsequent exams. Electronically signed by: Dorian Paris M.D. 01/26/2017 4:07 PM Dictated Date/Time: 01/26/2017 3:03 PM Patient: ASHLEY PAZ JR Address1: [address] Rec: [id number] Address2: Acct ID: [id number] [facility] Zip: [place] [address] Date: 1945 Sex: M Room/Bed: Ref Phy: Patrick Ratliff M.D. SC: C.CTS Att Phy: Rohan Renee D.O. Report #: [id number] Alyce Phy: Patrick Ratliff M.D. Test: CX Admit Phy: Assembler Seat: DAGO Interpreting Phy: Douglas Ramos D.O. Diagnosis: LUNG CANCER Ordering Phy: Rohan Renee D.O. Service Date: 01/26/17 Admit Date: 01/26/17 MNE: [id number] CONF: DICTATED BY: Douglas Ramos D.O.]] CC: Rohan Renee D.O. Greenberg, Michael R., M.D. Endcc: [~ rep ct add3]] (CHEST) THORAX WITH HISTORY: 71 years-old Male LUNG CA follow-up study. COMPARISON: Chest CT 11/05/2016, 03/19/2016, 10/11/2013. TECHNIQUE: Multiple axial CT images of the chest were obtained following the intravenous administration of 92 mL Optiray 320. A dose lowering technique was used consistent with the principals of ALARA. FINDINGS: There is a focal 4 mm calcification of the mid right thyroid lobe. No pathologic adenopathy pneumothorax is identified. Left pectoral Qoplcu-o-Jgdv catheter is seen with distal tip terminating near the superior cavoatrial junction. The heart is normal in size. Coronary arterial calcifications are noted. There is no evidence of aortic dissection or aneurysm. There is moderate atherosclerotic plaquing of the aorta. Pulmonary arterial tree appears unremarkable. There is no pneumothorax or pleural effusion. Mild biapical centrilobular and to lesser extent paraseptal emphysematous changes are present. There is an unchanged 5 mm noncalcified pulmonary nodule the left lower lobe which is stable dating back to at least 10/11/2013 compatible with benign etiology. 4 mm noncalcified pulmonary nodule within the lateral segment right middle lobe is also unchanged from 10/11/2013 compatible with benign etiology. There is mild bibasilar bronchiectasis with areas of pleural parenchymal scarring redemonstrated within the lingula and superior segment of the right lower lobe, stable from comparison study dated 11/05/2016. There is new irregular consolidative opacity within the left upper lobe with central air bronchograms measuring up to 2.1 x 4.8 cm which appears to be confluence abutting the pleural surface suggesting progressive pleural parenchymal scarring. Attention to this area on follow-up is recommended. Mild nodular and tree-in-bud opacities within the basal left lower lobe suggest areas of pneumonitis and bronchiolitis as seen on axial images 200-230. The imaged upper abdominal structures are within normal limits. There are no suspicious lytic or blastic bony lesions identified. Multilevel endplate spurring is seen throughout the spine. Remote fracture of the anterolateral left third rib is again seen. Subacute nondisplaced fractures of the lateral right sixth and seventh ribs are new from comparison study dated 11/05/2016. IMPRESSION: 1. Postsurgical changes of the left upper lobe and lingula are again seen with multifocal areas of pleural parenchymal scarring in the left upper lobe and superior segment right lower lobe. 2. New irregular consolidative type opacity with central air bronchograms abutting the pleural surface within the left upper lobe suggests progressive parenchymal scarring. Attention on follow-up is recommended. 3. Mild pneumonitis and bronchiolitis of the basal left lower lobe. 4. Unchanged noncalcified pulmonary nodules measuring up to 4 mm of the right middle lobe and left lower lobe are stable dating back to at least 2013 compatible with benign etiology. 5. Subacute nondisplaced fractures of the lateral right sixth and seventh ribs are new from comparison study dated 11/05/2016. The above report was generated using voice recognition software. It may contain grammatical, syntax or spelling errors. Electronically signed by: Mane Ramos M.D. 01/26/2017 3:14 PM Dictated Date/Time: 01/26/2017 3:02 PM The status of this report is Signed. Assessment & Plan Plan: The patient was seen and examined by Dr. Pacheco. He'll be having the sinus x-ray ordered by his primary physician today. The prior CT scan had recommended follow-up. He is currently not scheduled for scanning. Therefore recheck CT scan of the chest was ordered. He'll be notified as to the results. He did not have a follow-up appointment with medical oncology. An appointment was scheduled. We asked him to return to our office in 6 months. He may call if he has any questions or concerns. Assessment & Plan (Attending) ADDENDUM: I agree with note created by Monet Montesinos PA-C. I reviewed the patient's chart and information with her. I have examined and evaluated the patient. I reviewed relevant clinical information and answered the patient's and /or family's questions. PRODUCTION GRADER Total Time In Follow-Up I spent 20 minutes speaking to the patient and performing examination. I spent 15 minutes reviewing information and completing this note. AK Total Time (Attending) In Follow-Up I spent 15 minutes examining and counseling the patient. PRODUCTION GRADER Copy To Rohan Renee D.O.; Patrick Ratliff M.D. Problem Qualifiers (1) Lung cancer: Laterality: left Lung location: upper lobe of lung Qualified Codes: C34.12 - Malignant neoplasm of upper lobe, left bronchus or lung
== END | disposition home or self-care (01) ==
LOC: C.ONC 13:00
PROVIDERS: ATTEND Physician Assistant Medical
DX: Z08 Encounter for follow-up examination after completed treatment for malignant neoplasm (principal); Z92.3 Personal history of irradiation; Z85.118 Personal history of other malignant neoplasm of bronchus and lung

== ENCOUNTER → 2017-05-18 | Outpatient (CLI) | payer OTHER ==
--- NOTE | 2017-05-18 15:41 | DIAGNOSTIC IMAGING REPORT ---
SINUSES MIN 3 VIEWS ROUTINE CLINICAL HISTORY: CHRONIC MAXILLARY SINUSITIS COMPARISON STUDY: None. FINDINGS: The paranasal sinuses and mastoid air cells are clear. No fluid levels within the paranasal sinuses. The orbital floors are intact. The nasal septum is essentially midline. IMPRESSION: The paranasal sinuses and mastoid air cells are clear. Electronically signed by: Mehdi Carlos M.D. 05/18/2017 3:40 PM Dictated Date/Time: 05/18/2017 3:39 PM
== END | disposition home or self-care (01) ==
LOC: C.RADBC 15:12
PROVIDERS: ATTEND Physician Assistant
DX: J32.0 Chronic maxillary sinusitis (principal)

== ENCOUNTER → 2017-05-25 | Outpatient (CLI) | payer OTHER ==
[~2017-05-25] MED LIST changes: -APIX1TAB3 PO; -FURO-85 PO; +OPTIRAY 320 IV PRN
--- NOTE | 2017-05-25 11:23 | DIAGNOSTIC IMAGING REPORT ---
CHEST CT WITH CONTRAST CT DOSE: 1003.46 mGy.cm HISTORY: HX OF LUNG CA TECHNIQUE: Multiaxial CT images of the chest were performed following the intravenous administration of contrast. A dose lowering technique was utilized adhering to the principles of ALARA. COMPARISON: Chest CT 01/26/2017. FINDINGS: The central airways are patent. Suture material seen within the lingula consistent with postoperative change. Mild emphysema. Trace left pleural effusion. Slight improvement in the left upper lobe irregular densities near the left lung apex and medially. Linear density at the base of the left upper lobe have slightly progressed. There is a new 8 mm nodule within the base of the left lower lobe. This is suspicious for a metastatic lesion. Stable 2 mm nodule within the left lower lobe on image 238. Stable 3 mm nodule within the right lower lobe on image 198. Stable 4 mm nodule within the right middle lobe on image 188. A few linear scarlike densities within the superior segment of the right lower lobe have slightly improved. Healing left-sided rib fractures are again noted. There are acute left lateral fifth and sixth rib fractures which are new from the prior study. No suspicious lytic or blastic osseous lesions. Left Port-A-Cath terminates in the distal SVC. No mediastinal or hilar lymphadenopathy. Small hiatus hernia. Stable 1 cm hypodense lesion within the left hepatic lobe. The stability favors a cyst. Stable mild nodular thickening within the left adrenal gland. Normal right adrenal gland. The spleen is unremarkable. Mild subcutaneous edema within the left chest wall. Normal caliber thoracic aorta. The main pulmonary arteries are patent. IMPRESSION: 1. There is an 8 mm nodule within the base of the left lower lobe. This is suspicious for metastatic lesion. 2. Postoperative changes within the left upper lobe. The superior and medial densities have improved. The basilar densities within the left lower lobe have slightly progressed. However, this favors atelectasis or posttreatment changes. 3. Trace left pleural effusion. 4. Mild left chest wall soft tissue edema. 5. Hiatus hernia. 6. Acute nondisplaced left lateral fifth and sixth rib fractures. Multiple healing left-sided rib fractures are also noted. Electronically signed by: Mehdi Carlos M.D. 05/25/2017 11:22 AM Dictated Date/Time: 05/25/2017 11:07 AM
== END | disposition home or self-care (01) ==
LOC: C.CTS 10:14
PROVIDERS: ATTEND Physician Assistant Medical
DX: C34.12 Malignant neoplasm of upper lobe, left bronchus or lung (principal); S22.42XS Multiple fractures of ribs, left side, sequela; X58.XXXA Exposure to other specified factors, initial encounter; R91.1 Solitary pulmonary nodule; J90 Pleural effusion, not elsewhere classified; K44.9 Diaphragmatic hernia without obstruction or gangrene

== ENCOUNTER → 2017-06-14 | Outpatient (CLI) | payer OTHER ==
[~2017-06-14] MED LIST changes: -FOLI1TAB7 PO; +FOLI1TAB8 PO; -OPTIRAY 320 IV PRN
--- NOTE | 2017-06-14 11:47 | DIAGNOSTIC IMAGING REPORT ---
PET/CT SKULL-THIGH HISTORY: Lung carcinoma NON SMALL CELL LUNG CANCER TECHNIQUE: PET/CT was performed from the base of the skull through the pelvis following the intravenous administration of 15.2 mCi of F18-FDG. Non-contrast CT imaging was performed over the same range without breath-hold for attenuation correction of PET images and anatomic correlation, but not for primary interpretation as it is not of standard diagnostic quality. CT DOSE: 984.33 mGycm COMPARISON: 07/27/2016 FINDINGS: HEAD AND NECK: There is no FDG-avid disease or significant lymphadenopathy in the imaged portions of the head and the neck. CHEST: Interval development of mild infiltrative change left upper lobe. At the site of postoperative change is progressive pleural and parenchymal infiltrative change combined with moderate reactive pleural thickening. There are findings of mild associated increasing SUVs to approximately 2.3. It is difficult to differentiate from post treatment and/or radiation change and or reaction versus an inflammatory process. Atypical neoplastic recurrence is not entirely excluded. There is a least one rib fracture on image 88 this appears to be rib 3 with an additional healing fracture. 4 and 5. These appear to be nonpathologic. Findings of a slightly progressive in for infiltrative and pleural reactive changes at the right and to a lesser extent left base. There is no significant increase in metabolic activity at these sites. There is physiologic activity within the myocardium. The pleural and parenchymal changes within the left upper lung, left posterior costophrenic angle, and to a lesser extent right base have a subtle associated nodular component. These do not appear to demonstrate a significant increase in FDG activity. Nodule measures 6 mm the posterior costophrenic angle left. The absence of significant increased activity potentially is secondary to the relatively small size of the nodular densities in question. ABDOMEN/PELVIS: Below the diaphragm, tracer is distributed physiologically in the gastrointestinal and genitourinary tracts. There is no significant lymphadenopathy and no FDG-avid disease. MUSCULOSKELETAL: There is no FDG-avid or destructive bone lesion. IMPRESSION: 1. Mild increase in pleural reactive, nodular, and parenchymal infiltrative change throughout the left and to a lesser extent right lung as described. 2. These changes demonstrate minimal, if any increase in metabolic activity characteristics but do represent interval change from the prior study. 3. Although it is possible that the bulk of these findings relate to post therapeutic change, the possibility of low metabolic activity neoplastic recurrence must be considered and monitored. 4. A 4-[address] scan is recommended as follow-up The above report was generated using voice recognition software. It may contain grammatical, syntax or spelling errors. Electronically signed by: Mumtaz Estrada M.D. 06/14/2017 11:46 AM Dictated Date/Time: 06/14/2017 11:36 AM
== END | disposition home or self-care (01) ==
LOC: C.PET 08:45
PROVIDERS: ATTEND Nurse Practitioner Family
DX: C34.11 Malignant neoplasm of upper lobe, right bronchus or lung (principal)

== ENCOUNTER 2017-08-06 08:53 | Inpatient (IN) | payer OTHER ==
[2017-07-29 15:03] VITALS: BMI 38.0
[~2017-08-06] VITALS: Ht 175.3 cm; Wt 118.6 kg
[2017-08-06] VITALS (10 sets, daily range): BP systolic 116–160; BP diastolic 72–86; PULSE 89–103; TEMP 36.5–37.1; O2SAT 92–100; Ht 175.3 cm; Wt 118.6 kg
[~2017-08-06 08:53] MED LIST changes: +BENZ100C18 PO; -CHOL100010; -CHOL400C10 PO; +LACTATED RINGER'S 1000ML 1,000 ML IV SCH; -PANT40TA PO
[2017-08-06] MEDS ORDERED: NALOXONE HCL 0.4 MG/1 ML VIAL/CARP IV PRN (09:30)
[2017-08-06] MEDS ORDERED: FLUMAZENIL 0.1 MG/1 ML 10 ML VIAL IV PRN (09:30)
[2017-08-06] MEDS ORDERED: ONDANSETRON INJ 2 MG/ML 2 ML VIAL IV PRN ×2 (09:30→13:15)
[2017-08-06] MEDS ORDERED: LABETALOL HCL IV 5 MG/ML 20ML IV PRN (09:30)
[2017-08-06] MEDS ORDERED: EpHEDrine SULFATE INJ 50 MG/ML AMP IV PRN (09:30)
[2017-08-06] MEDS ORDERED: HYDROmorphone INJ 1 MG/ML SYR IV PRN (09:30)
[2017-08-06] MEDS ORDERED: MoRPHine SULFATE 10 MG/ML CARP/VIAL IV PRN (09:30)
[2017-08-06] MEDS ORDERED: PHENYLEPHRINE 100MCG/ML 5ML SYR IV PRN (09:30)
[2017-08-06] MEDS ORDERED: ATROPINE SULFATE 0.1 MG/ML 5ML SYR IV PRN (09:30)
[2017-08-06] MEDS ORDERED: MEPERIDINE HCL 25 MG/ML CARP IV PRN (09:30)
--- NOTE | 2017-08-06 11:09 | History and Physical ---
History & Physical Date Aug 06, 2017. History of Present Illness The patient is a 72 year old male with complaints of a new left lower lobe mass. 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 Treated by Dr Renee. Now with new left lower lobe nodule which is worrisome. Only area of concern. LOng discussion in office. Will proceed with left thoracoiscopic wedge resection. Past Medical/Surgical History Medical Problems: (1) Acute respiratory failure with hypoxia (2) Cruz esophagus (3) Bilateral pulmonary embolism (4) Bilateral pulmonary embolism (5) Chronic rhinitis (6) GERD (gastroesophageal reflux disease) (7) HTN (hypertension) (8) Hyperlipidemia (9) Lung cancer (10) Pulmonary embolism (11) Tachycardia with heart rate 100-120 beats per minute Surgical Problems: (1) H/O colonoscopy (2) H/O esophagogastroduodenoscopy Additional History Hepatic Disease: No Endocrine Disorder: No Kidney Disease: No Hypertension: No Heart Disease: No Bleeding Tendencies: No Infectious Diseases: No Allergies Coded Allergies: Adhesives (Verified Adverse Reaction, Unknown, Tegaderm = blistering, ) Home Medications Scheduled Aspirin (Aspirin), 325 MG PO HS Bupropion (Wellbutrin Sr), 150 MG PO HS Folic Acid (Folvite), 1 MG PO QAM Loratadine (Claritin), 10 MG PO QAM Losartan Potassium (Cozaar), 100 MG PO QAM Magnesium Aspartate-Potassium (Aspartate Mg & K), Unknown Dose PO QAM Montelukast Sodium (Singulair), 10 MG PO QPM Multivitamin (Multivitamin), 1 TAB PO AFTERNOON Ranitidine Hcl (Ranitidine Hcl), 1 CAP PO QPM Rivaroxaban (Xarelto), 1 TAB PO HS Simvastatin (Simvastatin), 20 MG PO QPM Scheduled PRN Albuterol Hfa (Ventolin Hfa), 1 PUFF INH QID PRN for Shortness of Breath Benzonatate (Tessalon Perles), 100 MG PO BID PRN for Cough Lorazepam (Ativan), 0.5 MG PO TID PRN for Anxiety/Agitation Physical Examination Skin: warm/dry, no rash Eyes: normal inspection, EOMI, sclerae normal ENT: normal ENT inspection, pharynx normal Head: normocephalic, atraumatic Neck: supple, no adenopathy, trachea midline Respiratory/Chest: lungs clear, normal breath sounds, no respiratory distress, + pertinent finding (Well healed left thoracoscopic incisions.) Cardiovascular: regular rate, rhythm, no edema, no murmur Abdomen / GI: normal bowel sounds, non tender, + pertinent finding (obese) Back: normal inspection Extremities: normal inspection Neurologic/Psych: no motor/sensory deficits, alert, normal reflexes, oriented x 3
[2017-08-06] MEDS ORDERED: FENTANYL CITRATE INJ 50 MCG/1 ML 2 ML VIAL ONE (11:14)
[2017-08-06] MEDS ORDERED: PROPOFOL IV EMULSION 10 MG/ML 20 ML VIAL IV ONE (11:14)
[2017-08-06] MEDS ORDERED: ONDANSETRON INJ 2 MG/ML 2 ML VIAL ONE (11:14)
[2017-08-06] MEDS ORDERED: DEXAMETHASONE SOD INJ 4 MG/ML VIAL ONE (11:14)
[2017-08-06] MEDS ORDERED: LIDOCAINE HCL 2% 2 ML VIAL (20MG/ML) ONE (11:14)
[2017-08-06] MEDS ORDERED: ROCURONIUM BROMIDE 10 MG/ML 5 ML VIAL IV ONE (11:14)
[2017-08-06] MEDS ORDERED: SODIUM CHLORIDE 0.9% PF 50 ML VIAL ONE (11:16)
[2017-08-06] MEDS ORDERED: BUPIVACAINE 0.5 % 5 MG/1 ML MPF 30ML VIAL ONE (11:16)
[2017-08-06] MEDS ORDERED: SODIUM CHLORIDE 0.9% INJ 10 ML VIAL ONE (11:16)
[2017-08-06] MEDS ORDERED: BUPIVACAINE LIPOSOME 1/3% 266 MG/20 ML VIAL INFIL ONE (11:17)
[2017-08-06] MEDS ORDERED: CEFAZOLIN SOD 1 GM VIAL ONE (12:01)
[2017-08-06] MEDS ORDERED: GLYCOPYRROLATE INJ 0.2 MG/ML VIAL ONE (12:53)
[2017-08-06] MEDS ORDERED: NEOSTIGMINE METHYLSULFATE 5 MG/5 ML SYR ONE (12:53)
--- NOTE | 2017-08-06 13:02 | [facility] Post Operative Brief Note ---
Immediate Operative Summary Operative Date Aug 06, 2017. Pre-Operative Diagnosis Left Lower Lobe Mass Post-Operative Diagnosis Metastatic Carcinoma to Left Lower Lobe Procedure(s) Performed Left Video Assisted Thoracoscopy with Left Lower Lobe Wedge Resection and Biposy of Pleural Mass Surgeon Dr. Ashby Property Condition Assessor Surgeon(s) Boby Ford PA-C Estimated Blood Loss 5ml Findings Consistent with Post-Op Diagnosis Specimens FROZEN: #1) Left Lower Lobe Nodule, left OR2 @ 1233 FRESH: A.) Periaortic Pleural Implant Anesthesia Type General
[2017-08-06] MEDS ORDERED: BENZONATATE 100MG CAP PO PRN (13:15)
[2017-08-06] MEDS ORDERED: ALBUTEROL HFA 8 GM INHALER INH PRN (13:15)
[2017-08-06] MEDS ORDERED: OXYCODONE HCL IR 5 MG TAB (IMMEDIATE RELEASE) PO PRN (13:15)
[2017-08-06] MEDS ORDERED: MoRPHine SULFATE 2 MG/ML CARP IV PRN (13:15)
[2017-08-06] MEDS ORDERED: LORAZEPAM 0.5 MG TAB PO PRN (13:15)
--- NOTE | 2017-08-06 13:38 | DIAGNOSTIC IMAGING REPORT ---
CHEST ONE VIEW PORTABLE CLINICAL HISTORY: LLL Wedge COMPARISON STUDY: Chest CT May 25, 2017. FINDINGS: A left internal jugular [id number] is in place. There is a left basilar chest tube. Left chest wall gas is noted. Left upper lung staple line is noted. Asymmetric left lung airspace opacity is noted. Cardiomediastinal silhouette is stable. Is mild diffuse interstitial thickening. IMPRESSION: 1. Left basilar chest tube in place. No pneumothorax. 2. Asymmetric left lower lung opacity. 3. Pulmonary vascular congestion. Electronically signed by: Dorian Paris M.D. 08/06/2017 1:37 PM Dictated Date/Time: 08/06/2017 1:33 PM
--- NOTE | 2017-08-06 13:58 | OPERATIVE REPORT ---
DATE OF OPERATION: 08/06/2017 PREOPERATIVE DIAGNOSES: 1. Enlarging mass, left lower lobe. 2. History of nonsmall cell lung carcinoma status post wedge resection and chemotherapy and radiation. POSTOPERATIVE DIAGNOSIS: Metastatic carcinoma, left lower lobe. PROCEDURE: 1. Left thoracoscopy with takedown with lysis of adhesions. 2. Wedge resection of left lower lobe mass. 3. Biopsy of periaortic parietal pleural mass. SURGEON: Dr. Ashby. YOKE SETTER: Boby Ford (Itzel Liliana was present for the entire case. He managed the camera and preschool assistant. He also closed the incisions at the conclusion of the case. ANESTHESIA: General anesthesia endotracheal intubation with double lumen tube. INDICATIONS FOR PROCEDURE: Mr. Anderson is a 72-year-old male who underwent a left thoracoscopy with a wedge resection last year. While waiting for the frozen section of this wedge resection of the left upper lobe mass, I saw an outpouching of a rib and biopsied this and was surprised to see this was metastatic cancer. This was not contiguous with the mass. As he had stage IV disease, I did not proceed with a lobectomy. He was treated with chemotherapy and radiation. I have discussed the multiple times our multidisciplinary conference. The patient actually doing quite well. He has gained weight and in fact it is fairly heavy now. He was found to have a small 7 mm mass in the distal aspect of the left lower lobe at the base, just above the diaphragm. Despite his prior surgery and radiation, I informed Dr. Renee that I felt that we could safely wedge this out. On 08/06/2017, the patient underwent uncomplicated wedge resection of this mass. We had clean resection margins. He also had a mass which I was a bit concerned about which is on the parietal pleura, just above the diaphragmatic crura along the aorta. I biopsied this, it came up nicely. I did not send this for frozen section. I took down adhesions and ended up 266 mg of Exparel with 30 mL of 0.5% bupivacaine and 100 mL of normal saline and did an intercostal block from the 3rd rib to the 11th rib. I then used it to anesthetize each of the port sites. He tolerated it well. DESCRIPTION OF PROCEDURE: The patient was taken to the recovery room and laid in supine position. General anesthesia induced and endotracheal intubation was performed. Inserted with a double lumen tube. The patient was placed in right lateral decubitus position. I chose entrance 2 interspaces below the tip of the scapula and upon entering with a Veress needle, I insufflated CO2 and then put a 5 mm port. It could be seen there were really no adhesions along the diaphragm and on the lower part, although there were multiple adhesions along the lower lobe and upper lobe. I placed another 5 mm port at about the fifth interspace anteriorly and then another 12 mm port about the 8th interspace anteriorly and inferiorly just above the diaphragmatic insertion. Using the Harmonic scalpel, I took down all the adhesions and freed up the posterior aspect of the lower lobe nicely. I could palpate this mass with forceps and I ended up using an Endo-HEAVEN stapler and firing several times removing this tissue off the field. Frozen section showed this to be a poorly differentiated carcinoma. The staple line was negative on frozen sections. While taking down the adhesions, I noted a mass along the aorta just above the hiatus. This was hard and abnormal looking and I grasped this and took this out with a Harmonic scalpel and delivered it off the field. 266 mg of Exparel mixed with 50 mL of 0.5% bupivacaine, 100 mL of normal saline and injected from the 3rd rib to the 12th rib at intercostal spaces. I then used the remainder to inject along in each incision. A 24-Italian chest tube was then directed towards the diaphragmatic sulci from the medial diaphragmatic recess from the anterior inferior port site and sutured in place with heavy silk suture. A 4-0 Monocryl was used in a running subcuticular fashion to approximate the wound edges. There was no air leak at the conclusion of the case. He tolerated it well with negligible blood loss. I attest to the content of the Intraoperative Record and any orders documented therein. Any exception s are noted below.
--- NOTE | 2017-08-06 14:10 | Anesthesiology Progress Note ---
Anesthesia Post Op Note Date & Time Aug 06, 2017 at 14:10 Vital Signs Pain Intensity: 0 Vital Signs Past 12 Hours Date Time Temp Pulse Resp B/P (MAP) Pulse Ox O2 Delivery O2 Flow Rate FiO2 08/06/17 14:05 91 15 95/73 96 Nasal Cannula 2 08/06/17 13:55 36.0 91 19 105/61 95 Nasal Cannula 2 08/06/17 13:45 92 18 114/64 95 Nasal Cannula 2 08/06/17 13:35 90 20 93/68 98 Oxymask 10 08/06/17 13:30 89 16 100 Mask 13.0 08/06/17 13:25 91 17 122/73 99 Oxymask 10 Nebulizer 08/06/17 13:19 36.2 90 14 121/73 99 Oxymask 10 08/06/17 09:10 36.7 96 20 160/86 96 Room Air Notes Mental Status: alert / awake / arousable, participated in evaluation Pt Amnestic to Procedure: Yes Nausea / Vomiting: adequately controlled Pain: adequately controlled Airway Patency, RR, SpO2: stable & adequate BP & HR: stable & adequate Hydration State: stable & adequate Anesthetic Complications: no major complications apparent The patient is doing well. He is awake and stable.
[2017-08-06] MEDS ORDERED: D5W AND 1/2NSS 1,000 ML IV SCH (15:15)
[2017-08-06 15:34] LABS: HEMATOCRIT 35.3 % (42-52); HEMOGLOBIN 11.8 g/dL (14.0-18.0); MEAN CELL VOLUME 94.4 fL (80-100); MEAN CORPUSCULAR HEMOGLOBIN 31.6 pg (25-34); MEAN CORPUSCULAR HGB CONC 33.4 g/dl (32-36); MEAN PLATELET VOLUME 9.8 fL (7.4-10.4); PLATELET COUNT 155 K/uL (130-400); RED CELL DISTRIBUTION WIDTH CV 15.7 % (11.5-14.5); WHITE BLOOD COUNT 7.49 K/uL (4.8-10.8)
[2017-08-06 15:44] LABS: PTT PATIENT 27.8 SECONDS (21.0-31.0)
[2017-08-06 15:51] LABS: CREATININE 1.19 mg/dl (0.60-1.40)
[2017-08-06] MEDS: ACETAMINOPHEN IV 1,000 MG in EMPTY BAG 0 ML IV SCH ×2 (16:50→23:37)
[2017-08-06] MEDS: RANITIDINE HCL 150 MG TAB PO SCH (20:27)
[2017-08-06] MEDS: BuPROPion SR 150 MG TABCR PO SCH (20:27)
[2017-08-06] MEDS: DOCUSATE SODIUM 100 MG CAP PO SCH (20:27)
[2017-08-06] MEDS: MONTELUKAST SOD 10 MG TAB PO SCH (20:27)
[2017-08-06] MEDS: ASPIRIN 325 MG ECTAB PO SCH (20:27)
[2017-08-06] MEDS: SIMVASTATIN 20 MG TAB PO SCH (20:28)
[2017-08-06] MEDS: METOCLOPRAMIDE HCL INJ 5 MG/ML 2 ML VIAL IV. SCH (21:46)
[2017-08-06] MEDS: KETOROLAC TROMETHAMINE 15 MG/ML VIAL IV. SCH (21:46)
[2017-08-07] VITALS (9 sets, daily range): BP systolic 99–125; BP diastolic 58–77; PULSE 87–112; TEMP 36.3–37.1; O2SAT 91–95
[2017-08-07] MEDS: METOCLOPRAMIDE HCL INJ 5 MG/ML 2 ML VIAL IV. SCH (05:49)
[2017-08-07] MEDS: KETOROLAC TROMETHAMINE 15 MG/ML VIAL IV. SCH (05:49)
--- NOTE | 2017-08-07 07:12 | SURGERY PROGRESS NOTE ---
DATE: 08/07/2017 Mr. Anderson was seen today on 08/07/2017. He is 1 day status post a thoracoscopic resection of a metastatic lesion in his left lower lobe. He has no pain. He is ambulating in the hallway. He is on room air. Quite frankly, I am pleased with him. He has done quite well from our standpoint. We will pull his chest tube out tomorrow and let him go home. He has been out very little.
--- NOTE | 2017-08-07 07:15 | DIAGNOSTIC IMAGING REPORT ---
CHEST ONE VIEW PORTABLE CLINICAL HISTORY: LLL Wedge COMPARISON STUDY: Chest radiograph August 06, 2017. FINDINGS: Left internal jugular [id number], left basilar chest tube and postoperative findings within the left lung are again noted. There is a small amount of gas at the chest tube insertion site. Relative lucency within the left lower hemithorax suggests a small basilar pneumothorax. Tiny left apical component is suspected. Hazy left mid and lower lung airspace opacity persists. There is mild diffuse interstitial thickening. IMPRESSION: 1. Left basilar chest tube in place with suspected small left-sided pneumothorax. 2. Persistent hazy left mid and lower lung airspace opacity. 3. Interstitial thickening which favors pulmonary vascular congestion with possible mild pulmonary edema. Electronically signed by: Dorian Paris M.D. 08/07/2017 7:14 AM Dictated Date/Time: 08/07/2017 7:12 AM
[2017-08-07] MEDS ORDERED: FUROSEMIDE INJ 20 MG in SYRINGE 0 ML IV SCH (07:30)
[2017-08-07] MEDS: DOCUSATE SODIUM 100 MG CAP PO SCH ×2 (08:26→22:49)
[2017-08-07] MEDS: LORATADINE 10 MG TAB PO SCH (08:26)
[2017-08-07] MEDS: LOSARTAN POTASSIUM 50 MG TAB PO SCH (08:27)
[2017-08-07] MEDS: MULTIVITAMIN TAB PO SCH (08:27)
[2017-08-07] MEDS: ENOXAPARIN 40 MG/0.4 ML SYR SQ SCH (08:29)
--- NOTE | 2017-08-07 12:04 | Medical Student: [facility] ---
Immediate Operative Summary Operative Date Aug 06, 2017. Pre-Operative Diagnosis Left lower lobe nodule with history of SCC Post-Operative Diagnosis Metastatic carcinoma to left lower lobe Procedure(s) Performed Left video assisted thorascopy LT lower lobe wedge resection Biopsy of pleural mass Surgeon Dr. Ashby Almond Cutting Machine Tender Surgeon(s) ELLIS Johnson Estimated Blood Loss 5mL Findings Metastatic carcinoma of left lower lobe resection per pathology report Specimens LT lower lobe wedge resection - Frozen Periarotic pleural implant - Fresh Drains LT chest tube Anesthesia General Complication(s) None Disposition Recovery Room / PACU
[2017-08-07] MEDS: MONTELUKAST SOD 10 MG TAB PO SCH (22:49)
[2017-08-07] MEDS: ASPIRIN 325 MG ECTAB PO SCH (22:49)
[2017-08-07] MEDS: SIMVASTATIN 20 MG TAB PO SCH (22:50)
[2017-08-07] MEDS: BuPROPion SR 150 MG TABCR PO SCH (22:50)
[2017-08-07] MEDS: RANITIDINE HCL 150 MG TAB PO SCH (22:50)
[2017-08-08 03:30] VITALS: PULSE 106
[2017-08-08 07:15] VITALS: BP 153/77; PULSE 100; TEMP 37; O2SAT 94
--- NOTE | 2017-08-08 07:30 | DIAGNOSTIC IMAGING REPORT ---
CHEST ONE VIEW PORTABLE CLINICAL HISTORY: 72 years-old Male presenting with lung resection . TECHNIQUE: Portable upright AP view of the chest was obtained. COMPARISON: 08/07/2017. FINDINGS: Large bore left pleural drain remains positioned at the paramediastinal left lung base. Right internal jugular Mediport terminates at the lower SVC. Surgical clips project over the left hilum. Atherosclerosis and tortuosity of the descending thoracic aorta. Cardiac silhouette partially obscured along the left heart border secondary to left upper lobe opacity, which is not significantly changed from prior. Allowing for image quality no evidence of pneumothorax. Continuous emphysema tracks along the left lateral chest wall up to the left pectoralis muscle associated with the pleural drain. Small left pleural effusion may be present. Overall prominent pulmonary vasculature, unchanged. No focal infiltrate in the right lung. Degenerative changes of the thoracic spine. Upper abdomen normal. IMPRESSION: 1. Large bore left pleural drain remains position at the left lung base. 2. Left lingular consolidation unchanged. 3. Postsurgical changes of the left lung. 4. No residual pneumothorax. 5. Pulmonary vascular congestion consistent with volume overload. No bartolome pulmonary edema. Electronically signed by: Taqueria Richmond M.D. 08/08/2017 7:29 AM Dictated Date/Time: 08/08/2017 7:25 AM
[2017-08-08 08:00] VITALS: O2SAT 94
[2017-08-08] MEDS ORDERED: HYDR-3419 PO (08:43)
[2017-08-08] MEDS ORDERED: CLC100 PO (08:43)
[2017-08-08] MEDS ORDERED: ACET-1047 PO (08:44)
--- NOTE | 2017-08-08 08:51 | Discharge Instructions ---
Discharge Instructions Date of Service Aug 08, 2017. Admission Reason for Admission: Lung Cancer Discharge Discharge Diagnosis / Problem: Lung Cancer Discharge Goals Goal(s): Learn about illness Activity Recommendations Activity Limitations: as noted below 1. You may remove dressings in 3 days and shower thereafter. No tub baths. 2. DO not drive until cleared to do so by Dr. Ashby. 3. Do not drive if taking vicodin. 4. Do not take tylenol if using vicodin. . Instructions / Follow-Up Instructions / Follow-Up 1. Office appointment with Dr. Ashby in 1 week. Office will call you with date and time of appointment. Go to hospital 1 hour before appointment to have a chest x-ray taken. Current Hospital Diet Patient's current hospital diet: Regular Diet Discharge Diet Recommended Diet: Regular Diet Procedures Procedures Performed: Left Video Assisted Thoracoscopy with Left Lower Lobe Wedge Resection and Biopsy of Pleural Mass Pending Studies Studies pending at discharge: no Medical Emergencies . Who to Call and When: Medical Emergencies: If at any time you feel your situation is an emergency, please call 911 immediately. . Non-Emergent Contact Non-Emergency issues call your: Surgeon Call Non-Emergent contact if: you have a fever, your pain is not controlled, wound has increased drainage . "Provider Documentation" section prepared by Boby Ford. . VTE Core Measure Inpt VTE Proph given/why not?: Enoxaparin (Lovenox)SQ
--- NOTE | 2017-08-08 08:51 | DIAGNOSTIC IMAGING REPORT ---
CHEST ONE VIEW PORTABLE CLINICAL HISTORY: 72 years-old Male presenting with tube removal . TECHNIQUE: Portable upright AP view of the chest was obtained. COMPARISON: 08/08/2017 at 6:44 AM. FINDINGS: Interval removal of the large bore left pleural drain. Left internal jugular Mediport again terminates at the lower SVC. Surgical clips project over the left mid lung. Atherosclerosis of the aortic arch. Cardiac silhouette mildly enlarged, unchanged. Slight interval decrease in pulmonary vascular prominence. Persistent opacity in the lingula resulting in obscuration of the left heart border. No new focal infiltrate. Trace blunting of the left costophrenic angle may indicate the presence of a pleural effusion. No pneumothorax. Degenerative changes of the thoracic spine. Decreased subcutaneous emphysema along the left lateral chest wall. IMPRESSION: 1. Removal of the large bore left pleural drain. Possible trace left pleural effusion remains. No pneumothorax. 2. Postsurgical changes of the right lung. 3. Chronic consolidation in the lingula. 4. Slight interval decrease in pulmonary vascular prominence. Mild volume overload may still be present. Electronically signed by: Taqueria Richmond M.D. 08/08/2017 8:50 AM Dictated Date/Time: 08/08/2017 8:47 AM
[2017-08-08] MEDS: MULTIVITAMIN TAB PO SCH (09:33)
[2017-08-08] MEDS: ENOXAPARIN 40 MG/0.4 ML SYR SQ SCH (09:33)
[2017-08-08] MEDS: LOSARTAN POTASSIUM 50 MG TAB PO SCH (09:34)
[2017-08-08] MEDS: DOCUSATE SODIUM 100 MG CAP PO SCH (09:34)
[2017-08-08] MEDS: LORATADINE 10 MG TAB PO SCH (09:34)
[2017-08-08 11:10] VITALS: BP 153/77; PULSE 100; TEMP 37; O2SAT 94
--- NOTE | 2017-08-08 11:34 | Discharge Summary ---
Discharge Summary Date of Service Aug 08, 2017. Discharge Summary Admission Date: Aug 06, 2017 at 11:00 Discharge Date: Aug 08, 2017 Discharge Disposition: Home Principal Diagnosis: Lung Cancer Procedures: Left VATS with LLL wedge resection Medication Reconciliation New Medications: Acetaminophen (Mapap) 325 Mg Tab 650 MG PO Q6H PRN for Pain for 30 Days, 0 Refills Hydrocodon/Acetaminophen 5MG/300MG (Vicodin (5MG/300MG)) 1 Tab Tab 1 TAB PO Q4H PRN for Pain, #20 TAB Docusate Sodium (Docusate Sodium) 100 Mg Cap 100 MG PO BID for 30 Days, #60 CAP 0 Refills Continued Medications: Albuterol Hfa (Ventolin Hfa) 200 Puffs/30972 Mcg Aers 1 PUFF INH QID PRN for Shortness of Breath, #1 INHALER Aspirin (Aspirin) 325 Mg Tab 325 MG PO HS INSTRUCTED TO CONTACT DR ASHBY OFFICE FOR PRE OP MED INSTRUCTIONS - PT VERBALIZES UNDERSTANDING Benzonatate (Tessalon Perles) 100 Mg Cap 100 MG PO BID PRN for Cough, CAP Bupropion (Wellbutrin Sr) 150 Mg Ertab 150 MG PO HS, TAB Folic Acid (Folvite) 1 Mg Tab 1 MG PO QAM, TAB Loratadine (Claritin) 10 Mg Tab 10 MG PO QAM, TAB Lorazepam (Ativan) 0.5 Mg Tab 0.5 MG PO TID PRN for Anxiety/Agitation, TAB Losartan Potassium (Cozaar) 100 Mg Tab 100 MG PO QAM, TAB Magnesium Aspartate-Potassium (Aspartate Mg & K) Unknown Strength Cap Unknown Dose PO QAM 1 CAP IN AM - UNKNOWN DOSAGE Montelukast Sodium (Singulair) 10 Mg Tab 10 MG PO QPM, TAB Multivitamin (Multivitamin) Tab 1 TAB PO AFTERNOON, TAB TAKES GUMMY FORM - TAKES IN AFTERNOON Ranitidine Hcl (Ranitidine Hcl) 300 Mg Cap 1 CAP PO QPM, CAP 3 Refills Rivaroxaban (Xarelto) 20 Mg Tab 1 TAB PO HS for 30 Days, TAB 11 Refills PT INSTRUCTED TO STOP 3 DAYS BEFORE SURGERY PER SURGEON OFFICE AND PCP Simvastatin (Simvastatin) 20 Mg Tab 20 MG PO QPM Discharge Exam Review of Systems: Constitutional: No fever, No chills Respiratory: No cough Cardiovascular: No chest pain Abdomen: No nausea, No vomiting Physical Exam: General Appearance: WD/WN, no apparent distress Respiratory/Chest: no respiratory distress, no accessory muscle use, + decreased breath sounds (at bases) Cardiovascular: regular rate, rhythm Abdomen / GI: non tender, soft Extremities: no calf tenderness Neurologic/Psychiatric: alert, oriented x 3 Hospital Course 72 year old male with known lung cancer and new LLL mass -pt. underwent Left VATS with LLL wedge resection on 08/06/17: -final path pending at time of d/c -chest tube managed in appropriate fashion and d/c on 08/08/17: -no pneumothorax noted on post-pull CXR -pain control measures implemented -coughing, deep breathing, use of IS, and ambulation encouraged OTHER -lovenox utilized for DVT prevention Total Time Spent: Greater than 30 minutes This includes examination of the patient, discharge planning, medication reconciliation, and communication with other providers. Discharge Instructions Please refer to the electronic Patient Visit Report (Discharge Instructions) for additional information. Follow-Up 1. Dr. Ashby in 1 week with repeat CXR Additional Copies To Patrick Ratliff M.D.
== END 2017-08-08 12:50 | disposition home or self-care (01) | DRG 164 ==
LOC: C.ACU 08:53 → C.MSN 11:00 → ENRESERV 14:19 → C.MSN 14:55
PROVIDERS: ADMIT Surgery; ATTEND Surgery
PROC: 0BBJ0ZX Excision of Left Lower Lung Lobe, Open Approach, Diagnostic (ICD-10-PCS; principal; 2017-08-06 10:45)
PROC: 0BBP0ZX Excision of Left Pleura, Open Approach, Diagnostic (ICD-10-PCS; principal; 2017-08-06 10:45)
DX: C34.32 Malignant neoplasm of lower lobe, left bronchus or lung (principal); C79.51 Secondary malignant neoplasm of bone; Z79.82 Long term (current) use of aspirin

== ENCOUNTER → 2017-08-16 | Outpatient (CLI) | payer OTHER ==
[~2017-08-16] MED LIST changes: +ACET-1047 PO; +CLC100 PO; +HYDR-3419 PO; -LACTATED RINGER'S 1000ML 1,000 ML IV SCH
--- NOTE | 2017-08-16 09:48 | DIAGNOSTIC IMAGING REPORT ---
CHEST 2 VIEWS ROUTINE CLINICAL HISTORY: 72 years-old Male presenting with C34.90 Lung [id number]. TECHNIQUE: PA and lateral views of the chest were obtained. COMPARISON: 08/08/2017. FINDINGS: Left internal jugular Mediport terminates in the SVC. Surgical clips project over the left mid lung. Atherosclerosis of aortic arch. The left heart border is obscured secondary to persistent left lingular opacity. A suture margin is noted at the periphery of the left lung Blunting of the left costophrenic angle unchanged. No pneumothorax. Right lung and pleural space clear. Deformities of several ribs suggest prior right rib fractures. Degenerative changes of the spine. Slight exaggerated thoracic kyphosis. IMPRESSION: 1. Postsurgical changes of the left lung with persistent consolidation in the lingula. No new focal infiltrate. 2. Persistent left pleural effusion or pleural thickening. Electronically signed by: Taqueria Richmond M.D. 08/16/2017 9:46 AM Dictated Date/Time: 08/16/2017 9:44 AM
== END | disposition home or self-care (01) ==
LOC: C.RADBC 09:35
PROVIDERS: ATTEND Surgery
DX: C34.90 Malignant neoplasm of unspecified part of unspecified bronchus or lung (principal)

== ENCOUNTER → 2017-09-03 | Outpatient (CLI) | payer OTHER ==
[~2017-09-03] MED LIST changes: +OPTIRAY 320 IV PRN
--- NOTE | 2017-09-03 14:20 | DIAGNOSTIC IMAGING REPORT ---
ABD/PELVIS IV AND ORAL CONT CT DOSE: 2050.97 mGy.cm HISTORY: Lung carcinoma WITH AND WITHOUT/LUNG CA TECHNIQUE: Multiaxial CT images of the abdomen and pelvis were performed following the use of intravenous and oral contrast. A dose lowering technique was utilized adhering to the principles of ALARA. COMPARISON STUDY: 01/26/2017 FINDINGS: Chronic and postoperative scarring/atelectatic change left base. Small loculated left basilar pneumothorax. Liver enhances uniformly. Gallbladder is negative for distention. 8 mm nodule lower pole left kidney is unchanged. No significant abdominal or pelvic adenopathy. Stable hyperplastic slightly nodular appearance of left adrenal. Bowel pattern is considered nonobstructive. Bladder is midline. No significant pelvic or inguinal adenopathy. IMPRESSION: 1. No evidence for metastatic disease within the abdomen or pelvis. 2. Stable small 8 mm left renal nodule/hyperdense cyst. 3. Stable left basilar post procedural parenchymal scarring 4. Very small left basilar loculated pneumothorax. The above report was generated using voice recognition software. It may contain grammatical, syntax or spelling errors. Electronically signed by: Mumtaz Estrada M.D. 09/03/2017 2:18 PM Dictated Date/Time: 09/03/2017 2:13 PM
--- NOTE | 2017-09-03 14:21 | DIAGNOSTIC IMAGING REPORT ---
CT OF THE CHEST WITH IV CONTRAST CLINICAL HISTORY: Lung carcinoma COMPARISON STUDY: May 2017 TECHNIQUE: Following the IV administration of 120 mL of Optiray-320, CT of the thorax was performed from the thoracic inlet to the lung bases. Images are reviewed in the axial, sagittal, and coronal planes. IV contrast was administered without complication. A dose lowering technique was utilized adhering to the principles of ALARA. CT DOSE: FINDINGS: Thyroid: Imaged portions of the thyroid gland are normal in appearance. Thoracic aorta: The thoracic aorta is normal in course and caliber, noting standard 3-vessel arch anatomy. No aneurysm or dissection is seen. Pulmonary vasculature: The pulmonary trunk is normal in caliber. There are no central filling defects identified to suggest pulmonary embolus. Note that this examination was not protocoled for the evaluation of pulmonary emboli. HEART: The heart is normal in size and configuration, without pericardial effusion. Lungs and pleural spaces: There are postoperative changes present within the lingula, and left lower lobe. There is a loculated left basilar pneumothorax with a maximal pleural separation of 2.5 cm. There are decreasing peripheral nodular airspace opacities within the left upper lobe. There are no new pulmonary nodules. Right lower lobe opacities remain stable and are felt to be atelectatic.. Mediastinum: There is a subcarinal lymph node the upper limits of normal in size. Sakina: There is no evidence of pathologic hilar adenopathy Axilla: There is no evidence of pathologic axillary lymphadenopathy Upper abdomen: There is a hiatal hernia. There is a stable 12 mm hypodensity within left hepatic lobe. Skeletal structures: There are fractures of the left third through seventh ribs. IMPRESSION: 1. Interval resection of the left lower lobe pulmonary nodule. 2. Loculated left basilar pneumothorax the maximal pleural separation of 2.5 cm 3. No evidence of pathologic adenopathy by size criteria 4. Decreasing peripheral nodular airspace opacities within the left upper lobe 5. Fractures of the left third through seventh ribs Electronically signed by: Rich Jackson M.D. 09/03/2017 2:19 PM Dictated Date/Time: 09/03/2017 2:11 PM
== END | disposition home or self-care (01) ==
LOC: C.CTS 13:44
PROVIDERS: ATTEND Internal Medicine Hematology & Oncology
DX: C34.11 Malignant neoplasm of upper lobe, right bronchus or lung (principal)

== ENCOUNTER → 2017-09-13 | Outpatient (CLI) | payer OTHER ==
--- NOTE | 2017-09-13 15:23 | DIAGNOSTIC IMAGING REPORT ---
ADDENDUM Body of the report under findings should read moderate atherosclerotic change thoracic aorta. Electronically signed by: Mumtaz Estrada M.D. 09/13/2017 3:55 PM Dictated Date/Time: 09/13/2017 3:55 PM ORIGINAL REPORT (CHEST FOR PE) ANGIO WITH CT DOSE: 582.34 mGy.cm HISTORY: Chest pain dyspnea TECHNIQUE: Multiaxial CT images of the chest were performed following the intravenous administration of contrast to evaluate the pulmonary arteries. Maximal intensity projection images were also obtained. A dose lowering technique was utilized adhering to the principles of ALARA. COMPARISON STUDY: 09/03/2017 FINDINGS: Moderate abscess chronic change thoracic aorta. No evidence for aneurysm or dissection. The pulmonary vasculature enhances appropriately. There is a small hiatal hernia. Interval resolution of the loculated left basilar pneumothorax. Unchanging fibrotic change of the left upper lung. No well-defined acute or interval infiltrative process. Scattered fibrotic scarring unchanged. IMPRESSION: 1. No evidence for pulmonary embolus. 2. Improved/node resolved left basilar pneumothorax. 3. Stable postoperative changes left base. 4. Stable fibrotic/infiltrative change left upper lung. 5. Unchanging left-sided rib fractures. The above report was generated using voice recognition software. It may contain grammatical, syntax or spelling errors. Electronically signed by: Mumtaz Estrada M.D. 09/13/2017 3:22 PM Dictated Date/Time: 09/13/2017 3:17 PM
== END | disposition home or self-care (01) ==
LOC: C.CTS 14:42
PROVIDERS: ATTEND Internal Medicine Hematology & Oncology
DX: C34.11 Malignant neoplasm of upper lobe, right bronchus or lung (principal)

== ENCOUNTER → 2018-01-20 | Outpatient (CLI) | payer OTHER ==
[~2018-01-20] MED LIST changes: +ACET-1311 PO; +ASPECOTC PO; -ASPI325T45 PO; -BUPR-79 PO; +CHOL20007 PO; +CITA40TA4 PO; -CLC100 PO; -HYDR-3419 PO; -OPTIRAY 320 IV PRN; +PRED10TA PO; +PRLSR20 PO; +SYMIN160 INH; +TRIATAB3 PO; +triam/hctz
--- NOTE | 2018-01-20 11:20 | DIAGNOSTIC IMAGING REPORT ---
CHEST SUPERDIMENSIONAL WITHOUT CLINICAL HISTORY: 72 years-old Male presenting with C34.90 Carcinoma, [id number]. TECHNIQUE: Multidetector CT imaging of the chest was performed without the use of intravenous contrast. IV contrast: None. A dose lowering technique was used consistent with the principles of ALARA (as low as reasonably achievable). COMPARISON: CTA chest from 09/13/2017.. CT DOSE (mGy.cm): The estimated cumulative dose is 906.36 mGy.cm. FINDINGS: Sailor topogram: Left subclavian Mediport terminates at the upper SVC. On soft tissue windows, normal thyroid and thoracic inlet. No axillary, supraclavicular, or mediastinal lymphadenopathy. Evaluation of the shavon limited without intravenous contrast. Atherosclerosis of the aorta. Normal heart size. Coronary artery and aortic valve calcification. No pericardial or pleural effusion. Small hiatal hernia. Normal liver density. Nonspecific mild perinephric fat infiltration. On lung windows, chronic anterior left upper lobe consolidation and reticular opacities with architectural distortion and bronchiectasis. Similar though less extensive changes are evident in the anterior basal left lower lobe. Suture margins are present both in the left upper and lower lobes. This is consistent with postsurgical and post radiation change. Punctate solid nodule in the periphery of the right middle lobe (series 4 image 187), unchanged. Trace emphysematous changes. Bandlike opacities in the superior segment of the right lower lobe likely scarring. Subpleural plaque-like consolidation and reticular opacities in the lateral basal right lower lobe is unchanged, likely scarring. No new focal infiltrate or nodule. Central airways patent. On bone windows, degenerative changes of the spine. No destructive osseous lesion. Multiple fractures of the anterior left ribs are unchanged from prior and likely related to external beam radiation. IMPRESSION: 1. Stable examination with postsurgical and post radiation changes primarily of the left hemithorax. No new pulmonary nodule or infiltrate. 2. Emphysema. Electronically signed by: Taqueria Richmond M.D. 01/20/2018 11:19 AM Dictated Date/Time: 01/20/2018 11:06 AM
== END | disposition home or self-care (01) ==
LOC: C.CTS 10:54
PROVIDERS: ATTEND Surgery
DX: C34.90 Malignant neoplasm of unspecified part of unspecified bronchus or lung (principal); J43.9 Emphysema, unspecified

== ENCOUNTER → 2018-01-28 | Outpatient (CLI) | payer OTHER ==
[~2018-01-28] MED LIST changes: -ACET-1047 PO; -LOSA100T65 PO; -PRLSR20 PO; -triam/hctz
[2018-01-28 09:54] LABS: BASO % 0.1 %; BASO ABS # 0.01 K/uL (0-0.2); EOS % 1.5 %; EOS ABS # 0.13 K/uL (0-0.5); HEMATOCRIT 36.3 % (42-52); HEMOGLOBIN 11.5 g/dL (14.0-18.0); IG# 0.03 K/uL (0.00-0.02); LYMPH % 16.1 %; LYMPH ABS # 1.44 K/uL (1.2-3.4); MEAN CELL VOLUME 97.1 fL (80-100); MEAN CORPUSCULAR HEMOGLOBIN 30.7 pg (25-34); MEAN CORPUSCULAR HGB CONC 31.7 g/dl (32-36); MEAN PLATELET VOLUME 10.2 fL (7.4-10.4); MONO % 8.4 %; MONO ABS # 0.75 K/uL (0.11-0.59); NEUT % 73.6 %; NEUT ABS # 6.56 K/uL (1.4-6.5); PLATELET COUNT 212 K/uL (130-400); RED CELL DISTRIBUTION WIDTH CV 19.3 % (11.5-14.5); RED CELL DISTRIBUTION WIDTH SD 67.8 fL (36.4-46.3); WHITE BLOOD COUNT 8.92 K/uL (4.8-10.8)
[2018-01-28 10:18] LABS: ALBUMIN 3.2 gm/dl (3.4-5.0); ALKALINE PHOSPHATASE 91 U/L (45-117); ALT/SGPT 38 U/L (12-78); AST/SGOT 18 U/L (15-37); BLOOD UREA NITROGEN 20 mg/dl (7-18); CALCIUM 8.6 mg/dl (8.5-10.1); CARBON DIOXIDE 26 mmol/L (21-32); CREATININE 1.21 mg/dl (0.60-1.40); GLUCOSE 119 mg/dl (70-99); POTASSIUM 3.4 mmol/L (3.5-5.1); SODIUM 139 mmol/L (136-145)
== END | disposition home or self-care (01) ==
LOC: C.LABSPEC 09:41
PROVIDERS: ATTEND Nurse Practitioner Family
DX: C34.11 Malignant neoplasm of upper lobe, right bronchus or lung (principal)

== ENCOUNTER → 2018-02-18 | Outpatient (CLI) | payer OTHER ==
[2018-02-18 11:41] LABS: BASO % 0.6 %; BASO ABS # 0.03 K/uL (0-0.2); EOS % 2.1 %; HEMATOCRIT 37.3 % (42-52); HEMOGLOBIN 11.9 g/dL (14.0-18.0); IG# 0.02 K/uL (0.00-0.02); LYMPH % 27.3 %; LYMPH ABS # 1.31 K/uL (1.2-3.4); MEAN CELL VOLUME 95.6 fL (80-100); MEAN CORPUSCULAR HEMOGLOBIN 30.5 pg (25-34); MEAN CORPUSCULAR HGB CONC 31.9 g/dl (32-36); MEAN PLATELET VOLUME 10.2 fL (7.4-10.4); MONO % 8.1 %; MONO ABS # 0.39 K/uL (0.11-0.59); NEUT % 61.5 %; NEUT ABS # 2.94 K/uL (1.4-6.5); PLATELET COUNT 146 K/uL (130-400); RED CELL DISTRIBUTION WIDTH CV 17.7 % (11.5-14.5); RED CELL DISTRIBUTION WIDTH SD 62.1 fL (36.4-46.3); WHITE BLOOD COUNT 4.79 K/uL (4.8-10.8)
[2018-02-18 12:01] LABS: ALBUMIN 3.4 gm/dl (3.4-5.0); ALT/SGPT 29 U/L (12-78); AST/SGOT 22 U/L (15-37); BLOOD UREA NITROGEN 21 mg/dl (7-18); CALCIUM 8.7 mg/dl (8.5-10.1); CARBON DIOXIDE 25 mmol/L (21-32); CREATININE 1.24 mg/dl (0.60-1.40); GLUCOSE 108 mg/dl (70-99); POTASSIUM 3.5 mmol/L (3.5-5.1); SODIUM 140 mmol/L (136-145)
[2018-02-18 12:04] LABS: ALKALINE PHOSPHATASE 107 U/L (45-117); TOTAL PROTEIN 7.4 gm/dl (6.4-8.2)
== END | disposition home or self-care (01) ==
LOC: C.LABSPEC 11:31
PROVIDERS: ATTEND Nurse Practitioner Family
DX: C34.11 Malignant neoplasm of upper lobe, right bronchus or lung (principal)